=== PATIENT | male | born 1980 | race Caucasian/White ===

== ENCOUNTER 2019-04-10 09:58 | Inpatient (IN) | payer OTHER ==
[2019-04-10 10:16] VITALS: BMI 33.3
--- NOTE | 2019-04-10 12:25 | HP ---
COWS - Scale Resting Pulse: 1= [place] 81-100 Sweatin= Chills/Flushing Restless Observation: 0= Sits Still Pupil Size: 0= Normal to Room Light Bone or Joint Aches: 4=Acute Joint/Muscle Pain Runny Nose/ Eye Tearin= Nasal Congestion GI Upset > 30mins: 0= None Tremor Observation: 0= None Yawning Observation: 0= None Anxiety or Irritability: 2=Irritable/Anxious Goose Flesh Skin: 0=Smooth Skin COWS Score: 9 CIWA Score - Admission Criteria OASAS Guidelines: Admission for Medically Managed Detox: Requires at least one of the followin. CIWA greater than 12 2. Seizures within the past 24 hours 3. Delirium tremens within the past 24 hours 4. Hallucinations within the past 24 hours 5. Acute intervention needed for co occurring medical disorder 6. Acute intervention needed for co occurring psychiatric disorder 7. Severe withdrawal that cannot be handled at a lower level of care (continued vomiting, continued diarrhea, abnormal vital signs) requiring intravenous medication and/or fluids 8. Admission ROS [facility] Allergies/Adverse Reactions: Allergies Allergy/AdvReac Type Severity Reaction Status Date / Time Fish Containing Products Allergy Intermediate Swelling Verified 04/10/19 10:22 History of Present Illness: pt here requesting detox from opiate use , reports 2.5 bundles /day via inhalation , first age of use 14 , latest use yesterday afternoon 8 bags heroin via inhalation , current symptoms as above . Oxycodone : from friends , 10 /day , latest use yesterday . Longest sobriety since age 14 : zero , reports he got scared when his friend of an overdose 4 days ago : "It's that Fentanyl it's killing everybody " , denies prior participation in outpt program , denies prior OD , tobacco ; 2 ppd cocaine : 4 bags recently started , denies IVDU cannabis : use : 2 blunts/day methadone : was in [facility] in [place] ( ? [facility] ) , MDD 220 mg states was there in December 2018 x almost 1 year reports was hospitalized in [facility] x 2 weeks ago for abd issue " bad food that I ate ' , thinks they may have given him methadone there etoh - denies PMHX : denies PSHX ; denies PSYch : denies , denies current SI / Hi meds : denies SHx : homeless , unemployed , finances habit through shoplifting , denies current or past legal issues . Exam Limitations: Clinical Condition - Ebola screening Have you traveled outside of the country in the last 21 days: No (N) Have you had contact with anyone from an Ebola affected area: No Do you have a fever: No - Review of Systems Constitutional: See HPI EENT: reports: See HPI, Nose Congestion Respiratory: reports: No Symptoms reported Cardiac: reports: No Symptoms Reported GI: reports: See HPI : reports: No Symptoms Reported Musculoskeletal: reports: No Symptoms Reported Integumentary: reports: No Symptoms Reported Neuro: reports: No Symptoms reported Endocrine: reports: No Symptoms Reported, Other (pt denies h/o DM) Psychiatric: reports: Orientated x3, Anxious Patient History - Smoking Cessation Smoking history: Current every day smoker Have you smoked in the past 12 months: Yes Hx Chewing Tobacco Use: No Initiated information on smoking cessation: No - Substances abused Cocaine Substance route: Inhalation Frequency: Daily Amount used: 2BUNDLES Age of first use: 14 Date of last use: 04/09/19 Heroin Substance route: Inhalation Frequency: Daily Amount used: 2- BUNDLES Age of first use: 14 Date of last use: 04/09/19 Other Other (specify): PERCOCET Substance route: Oral Frequency: Daily Amount used: 4TABS Age of first use: 36 Date of last use: 04/09/19 Family Disease History - Family Disease History Family Disease History: CA: Mother (46 d. throat [place] ), Other: Father (d.46 AIDS ), Sister (9 siblings, does not keep in touch ) Other Family History: no children Admission Physical Exam S - Vital Signs Vital Signs: Vital Signs - 24 hr 04/10/19 10:07 Temperature 98.3 F Pulse Rate 83 Respiratory 18 Rate Blood Pressure 111/66 - Physical General Appearance: Yes: Moderate Distress, Anxious HEENTM: Yes: EOMI, Hearing grossly Normal, Normocephalic, Normal Voice, Other ( poor dentition , many missing teeth) Respiratory: Yes: Chest Non-Tender, Lungs Clear, Normal Breath Sounds Neck: Yes: No masses,lesions,Nodules, Trachea in good position Cardiology: Yes: Regular Rhythm, Regular Rate, S1, S2 Abdominal: Yes: Non Tender, Soft, Protuberent Back: Yes: Normal Inspection Musculoskeletal: Yes: Gait Steady, Joint Stiffness (left knee reprots remote cyling injury w/ intermittent stiffness and swelling), Joint swelling ( left knee) Extremities: Yes: Normal Range of Motion, Non-Tender Neurological: Yes: Fully Oriented, Alert, Motor Strength 5/5 Integumentary: Yes: Warm - Diagnostic (1) Opioid dependence Current Visit: Yes Status: Acute Qualifiers: Substance use status: in withdrawal Qualified Code(s): F11.23 - Opioid dependence with withdrawal (2) Cocaine abuse Current Visit: Yes Status: Acute (3) Cannabis dependence Current Visit: Yes Status: Chronic (4) Nicotine dependence Current Visit: Yes Status: Chronic Qualifiers: Nicotine product type: cigarettes Breathalyzer - Breathalyzer Breathalyzer: 0 Urine Drug Screen - Test Device Lot number: [id number] Expiration date: 12/26/20 - Control Is test valid?: Yes - Results Drug screen NEGATIVE: No Urine drug screen results: THC-Marijuana, WOLFGANG-Cocaine, MOP-Opiates, OXY- Oxycodone, MTD-Methadone Inpatient Rehab Admission - Rehab Decision to Admit Inpatient rehab admission?: No
[2019-04-10] MEDS ORDERED: cloNIDine HCL 0.1 MG TABLET PO PRN (12:31)
[2019-04-10] MEDS ORDERED: MELATONIN 5 MG TABLETS PO PRN (12:31)
[2019-04-10] MEDS ORDERED: MAGNESIUM CITRATE 300 ML BOTTLE PO PRN (12:31)
[2019-04-10] MEDS ORDERED: BISMUTH SUBSALICYLATE 262 MG/15 ML BTL PO PRN (12:31)
[2019-04-10] MEDS ORDERED: MENTHOL/PHENOL 1 EACH UD MM PRN (12:31)
[2019-04-10] MEDS ORDERED: MAG HYDROX/AL HYDROX/SIMETH 30 ML UNIT-DOSE CUP PO PRN (12:31)
[2019-04-10] MEDS ORDERED: MAGNESIUM HYDROX 2400MG/30ML ORAL SUSPENSION 30 ML CUP PO PRN (12:31)
[2019-04-10] MEDS ORDERED: ACETAMINOPHEN 325 MG TABLET (FP) PO PRN (12:31)
[2019-04-10] MEDS: METHOCARBAMOL 500 MG TABLET PO PRN ×2 (15:01→22:23)
[2019-04-10] MEDS: hydrOXYzine PAMOATE 25 MG CAPSULE (FP) PO PRN (15:01)
[2019-04-10 15:15] LABS: HEMATOCRIT 40.8 % (35.4-49); HEMOGLOBIN 13.3 GM/dL (11.7-16.9); MCH 27.3 pg (25.7-33.7); MCHC 32.6 g/dl (32.0-35.9); MEAN CELL VOLUME 83.6 fl (80-96); MEAN PLT VOLUME 9.1 fl (7.5-11.1); PLATELET COUNT 455 K/MM3 (134-434); RBC 4.88 M/mm3 (4.00-5.60); RDW 14.2 % (11.9-15.9); WHITE BLOOD COUNT 7.1 K/mm3 (4.0-10.0)
[2019-04-10 15:17] LABS: ALBUMIN 3.2 g/dl (3.4-5.0); BILIRUBIN,TOTAL 0.2 mg/dL (0.2-1); CALCIUM 9.5 mg/dL (8.5-10.1); CREATININE 0.8 mg/dL (0.55-1.3); POTASSIUM 4.9 mmol/L (3.5-5.1); TOT PROT 7.7 g/dl (6.4-8.2)
[2019-04-10] MEDS ORDERED: INSULIN SLIDING SCALE (NOVOLOG) 1 VIAL SQ SCH (16:30)
[2019-04-10] MEDS: INSULIN SLIDING SCALE (NOVOLOG) 1 VIAL SQ SCH (18:11)
[2019-04-10] MEDS: THIAMINE HCL 100 MG TABLET (FP) PO SCH (22:22)
[2019-04-10] MEDS ORDERED: METHADONE HCL 10 MG TABLET (FOR DETOX USE ONLY) PO ONE (23:00)
[2019-04-11] MEDS: ACETAMINOPHEN 325 MG TABLET (FP) PO PRN ×2 (01:53→23:10)
[2019-04-11] MEDS: hydrOXYzine PAMOATE 25 MG CAPSULE (FP) PO PRN ×3 (01:53→21:35)
[2019-04-11] MEDS: INSULIN SLIDING SCALE (NOVOLOG) 1 VIAL SQ SCH ×2 (07:44→17:08)
[2019-04-11] MEDS ORDERED: METHADONE HCL 10 MG TABLET (FOR DETOX USE ONLY) PO ONE (10:00)
[2019-04-11] MEDS: PRENATAL VITAMINS W/ FOLIC ACID TABLET (FP) PO SCH (10:25)
[2019-04-11] MEDS: METHOCARBAMOL 500 MG TABLET PO PRN ×2 (10:26→21:35)
--- NOTE | 2019-04-11 17:44 | PN ---
BHS COWS - Scale Resting Pulse: 2= [place] 101-120 Sweatin= Chills/Flushing Restless Observation: 1= Difficult to Sit Still Pupil Size: 0= Normal to Room Light Bone or Joint Aches: 2= Severe Diffuse Aches Runny Nose/ Eye Tearin= None GI Upset > 30mins: 0= None Tremor Observation of Outstretched Hands: 0= None Yawning Observation: 1= 1-2x During Session Anxiety or Irritability: 4=Extreme Anxiety Goose Flesh Skin: 3=Piloerection COWS Score: 14 BHS Progress Note (SOAP) Subjective: Anxious, Agitated, Sweating, Body Aches. Objective: PATIENT A & O X 3, OBSERVED AMBULATING ON UNIT UNASSISTED. IN NO ACUTE DISTRESS. 04/11/19 17:39 Vital Signs Temperature 97.8 F 04/11/19 13:08 Pulse Rate 93 H 04/11/19 13:08 Respiratory Rate 20 04/11/19 13:08 Blood Pressure 126/77 04/11/19 13:08 O2 Sat by Pulse Oximetry (%) Laboratory Tests 04/10/19 04/10/19 04/10/19 12:45 12:45 12:45 WBC 7.1 RBC 4.88 Hgb 13.3 Hct 40.8 MCV 83.6 MCH 27.3 MCHC 32.6 RDW 14.2 Plt Count 455 H MPV 9.1 Sodium 133 L Potassium 4.9 Chloride 94 L Carbon Dioxide 33 H Anion Gap 6 L BUN 11 Creatinine 0.8 Est GFR (CKD-EPI)AfAm 132.27 Est GFR (CKD-EPI)NonAf 114.12 POC Glucometer Random Glucose 387 H* Calcium 9.5 Total Bilirubin 0.2 AST 23 ALT 39 Alkaline Phosphatase 90 Total Protein 7.7 Albumin 3.2 L RPR Titer Nonreactive 04/10/19 04/11/19 04/11/19 16:47 07:40 16:23 WBC RBC Hgb Hct MCV MCH MCHC RDW Plt Count MPV Sodium Potassium Chloride Carbon Dioxide Anion Gap BUN Creatinine Est GFR (CKD-EPI)AfAm Est GFR (CKD-EPI)NonAf POC Glucometer 324 296 475 Random Glucose Calcium Total Bilirubin AST ALT Alkaline Phosphatase Total Protein Albumin RPR Titer LABS NOTED. Assessment: 04/11/19 17:40 WITHDRAWAL SYMPTOMS. HYPERGLYCEMIA. Plan: CONTINUE DETOX. INCREASE DAILY PO FLUID / WATER INTAKE. PATIENT OBSERVED GETTING INVOLVED IN VERBAL ALTERCATION WITH OTHER PATIENT DURING AM. PATIENT APPROACHED BY MEMBERS OF INTERDISCIPLINARY TEAM (HEALTH ADVOCATE, RN, CASE MANAGEMENT STAFF AND ASPNET DEVELOPER) AND ADVISED TO MAINTAIN DISTANCE MUCH POSSIBLE FROM OTHER PATIENT FOR REMAINDER OF TIME ON DETOX UNIT AND TO IMMEDIATELY INFORM MEDICAL / CASE MANAGEMENT STAFF SHOULD HE FEEL THREATENED OR AT-ODDS WITH ANY OTHER PATIENT AT ANY TIME. PATIENT VERBALIZED UNDERSTANDING OF RECOMMENDATION.
[2019-04-11] MEDS: THIAMINE HCL 100 MG TABLET (FP) PO SCH (21:35)
[2019-04-12] MEDS: INSULIN SLIDING SCALE (NOVOLOG) 1 VIAL SQ SCH ×2 (07:46→17:04)
[2019-04-12] MEDS ORDERED: METHADONE HCL 10 MG TABLET (FOR DETOX USE ONLY) PO ONE (10:00)
[2019-04-12] MEDS: PRENATAL VITAMINS W/ FOLIC ACID TABLET (FP) PO SCH (10:11)
--- NOTE | 2019-04-12 12:47 | PN ---
BHS COWS - Scale Resting Pulse: 0= [place] 80 or Below Sweatin= Chills/Flushing Restless Observation: 3= Extraneous Movement Pupil Size: 0= Normal to Room Light Bone or Joint Aches: 4=Acute Joint/Muscle Pain Runny Nose/ Eye Tearin= None GI Upset > 30mins: 0= None Tremor Observation of Outstretched Hands: 1= Tremor [place], Not Seen Yawning Observation: 1= 1-2x During Session Anxiety or Irritability: 1=Feels Anxious/Irritable Goose Flesh Skin: 0=Smooth Skin COWS Score: 11 BHS Progress Note (SOAP) Subjective: PT C/O ANXIETY, IRRITABILITY, HOT/COLD CHILLS. REQUESTING "I NEED MY METHADONE NOW". PT EXPRESSED DESIRE TO BE CLEAN BUT DOES NOT WANT METHADONE MAINTENANCE BECAUSE "DID NOT LIKE IT" PREVIOUSLY. REPORTS WAS ON METHADONE 200+ MG IN THE PAST. D/W PT OTHER AVAILABLE OPTIONS VIZ- A -VIZ SUBOXONE, NALTREXONE AND VIVITROL. ENCOURAGED TO MEET WITH COUNSELOR FOR AFTERCARE PLANS. Vital Signs 04/12/19 04/12/19 06:07 09:36 Temperature 98.2 F 97 F L Pulse Rate 61 72 Respiratory 18 18 Rate Blood Pressure 112/72 127/81 Laboratory Tests 04/10/19 04/10/19 04/10/19 12:45 12:45 12:45 WBC 7.1 RBC 4.88 Hgb 13.3 Hct 40.8 MCV 83.6 MCH 27.3 MCHC 32.6 RDW 14.2 Plt Count 455 H MPV 9.1 Sodium 133 L Potassium 4.9 Chloride 94 L Carbon Dioxide 33 H Anion Gap 6 L BUN 11 Creatinine 0.8 Est GFR (CKD-EPI)AfAm 132.27 Est GFR (CKD-EPI)NonAf 114.12 POC Glucometer Random Glucose 387 H* Calcium 9.5 Total Bilirubin 0.2 AST 23 ALT 39 Alkaline Phosphatase 90 Total Protein 7.7 Albumin 3.2 L RPR Titer Nonreactive 04/10/19 04/11/19 04/11/19 16:47 07:40 16:23 WBC RBC Hgb Hct MCV MCH MCHC RDW Plt Count MPV Sodium Potassium Chloride Carbon Dioxide Anion Gap BUN Creatinine Est GFR (CKD-EPI)AfAm Est GFR (CKD-EPI)NonAf POC Glucometer 324 296 475 Random Glucose Calcium Total Bilirubin AST ALT Alkaline Phosphatase Total Protein Albumin RPR Titer Objective: 04/12/19 12:51 WITHDRAWAL SX Assessment: 04/12/19 12:51 WITHDRAWAL SX Plan: CONTINUE DETOX D/W PT TO FOLLOW UP WITH COUNSELOR FOR AFTERCARE PLANNING.
[2019-04-12] MEDS: METHOCARBAMOL 500 MG TABLET PO PRN ×2 (15:44→22:04)
[2019-04-12] MEDS: hydrOXYzine PAMOATE 25 MG CAPSULE (FP) PO PRN ×2 (15:44→22:04)
[2019-04-12] MEDS: ACETAMINOPHEN 325 MG TABLET (FP) PO PRN (15:44)
[2019-04-12] MEDS: THIAMINE HCL 100 MG TABLET (FP) PO SCH (22:04)
[2019-04-13] MEDS: INSULIN SLIDING SCALE (NOVOLOG) 1 VIAL SQ SCH ×2 (07:14→17:35)
[2019-04-13] MEDS: IBUPROFEN 400 MG TABLET (FP) PO PRN ×2 (07:56→17:36)
[2019-04-13] MEDS: METHOCARBAMOL 500 MG TABLET PO PRN ×3 (07:56→22:53)
[2019-04-13] MEDS ORDERED: METHADONE HCL 10 MG TABLET (FOR DETOX USE ONLY) PO ONE (10:00)
[2019-04-13] MEDS: PRENATAL VITAMINS W/ FOLIC ACID TABLET (FP) PO SCH (10:03)
[2019-04-13] MEDS: ACETAMINOPHEN 325 MG TABLET (FP) PO PRN (10:04)
[2019-04-13] MEDS: hydrOXYzine PAMOATE 25 MG CAPSULE (FP) PO PRN ×2 (10:04→22:53)
--- NOTE | 2019-04-13 13:45 | PN ---
BHS COWS - Scale Resting Pulse: 0= [place] 80 or Below Sweatin= Chills/Flushing Restless Observation: 0= Sits Still Pupil Size: 0= Normal to Room Light Bone or Joint Aches: 1= Mild Discomfort Runny Nose/ Eye Tearin= Nasal Congestion GI Upset > 30mins: 1= Stomach Cramp Tremor Observation of Outstretched Hands: 1= Tremor [place], Not Seen Yawning Observation: 1= 1-2x During Session Anxiety or Irritability: 1=Feels Anxious/Irritable Goose Flesh Skin: 0=Smooth Skin COWS Score: 7 S Progress Note (SOAP) Subjective: feeling tired tolerate food and fluid well discuss medication assisted maintenance treatment program pick pack worker narcan kit from pharmacy Objective: 04/13/19 13:48 Vital Signs Temperature 97.1 F L 04/13/19 13:34 Pulse Rate 72 04/13/19 13:34 Respiratory Rate 18 04/13/19 13:34 Blood Pressure 106/70 04/13/19 13:34 O2 Sat by Pulse Oximetry (%) Laboratory Last Values WBC 7.1 K/mm3 (4.0-10.0) 04/10/19 12:45 RBC 4.88 M/mm3 (4.00-5.60) 04/10/19 12:45 Hgb 13.3 GM/dL (11.7-16.9) 04/10/19 12:45 Hct 40.8 % (35.4-49) 04/10/19 12:45 MCV 83.6 fl (80-96) 04/10/19 12:45 MCH 27.3 pg (25.7-33.7) 04/10/19 12:45 MCHC 32.6 g/dl (32.0-35.9) 04/10/19 12:45 RDW 14.2 % (11.9-15.9) 04/10/19 12:45 Plt Count 455 K/MM3 (134-434) H 04/10/19 12:45 MPV 9.1 fl (7.5-11.1) 04/10/19 12:45 Sodium 133 mmol/L (136-145) L 04/10/19 12:45 Potassium 4.9 mmol/L (3.5-5.1) 04/10/19 12:45 Chloride 94 mmol/L (98-107) L 04/10/19 12:45 Carbon Dioxide 33 mmol/L (21-32) H 04/10/19 12:45 Anion Gap 6 MMOL/L (8-16) L 04/10/19 12:45 BUN 11 mg/dL (7-18) 04/10/19 12:45 Creatinine 0.8 mg/dL (0.55-1.3) 04/10/19 12:45 Est GFR (CKD-EPI)AfAm 132.27 04/10/19 12:45 Est GFR (CKD-EPI)NonAf 114.12 04/10/19 12:45 POC Glucometer 475 UNITS (80-120) 04/11/19 16:23 Random Glucose 387 mg/dL (74-106) H* 04/10/19 12:45 Calcium 9.5 mg/dL (8.5-10.1) 04/10/19 12:45 Total Bilirubin 0.2 mg/dL (0.2-1) 04/10/19 12:45 AST 23 U/L (15-37) 04/10/19 12:45 ALT 39 U/L (13-61) 04/10/19 12:45 Alkaline Phosphatase 90 U/L (45-117) 04/10/19 12:45 Total Protein 7.7 g/dl (6.4-8.2) 04/10/19 12:45 Albumin 3.2 g/dl (3.4-5.0) L 04/10/19 12:45 RPR Titer Nonreactive (NONREACTIVE) 04/10/19 12:45 lab noted Assessment: 04/13/19 13:48 mild opiate withdrawal sx Plan: continue detox
[2019-04-13] MEDS: THIAMINE HCL 100 MG TABLET (FP) PO SCH (22:53)
[2019-04-14] MEDS ORDERED: METHADONE HCL 5 MG TABLET (FOR DETOX USE ONLY) PO ONE (06:00)
[2019-04-14] MEDS: INSULIN SLIDING SCALE (NOVOLOG) 1 VIAL SQ SCH (07:34)
[2019-04-14 09:17] VITALS: BP 118/89; PULSE 81; TEMP 98.2
[2019-04-14] MEDS: PRENATAL VITAMINS W/ FOLIC ACID TABLET (FP) PO SCH (10:08)
[2019-04-14] MEDS: ACETAMINOPHEN 325 MG TABLET (FP) PO PRN (10:09)
--- NOTE | 2019-04-14 15:06 | DS ---
[facility] Detox Discharge Summary Admission Date: 04/10/19 Discharge Date: 04/14/19 - History Present History: Opioid Dependence Additional Comments: 38 years old male admitted on 04/10/19 for opiate withdrawal stabilization completed detox regimen [facility] - Physical Exam Results Vital Signs: Vital Signs Temperature 98.2 F 04/14/19 09:16 Pulse Rate 81 04/14/19 09:16 Respiratory Rate 18 04/14/19 09:16 Blood Pressure 118/89 04/14/19 09:16 O2 Sat by Pulse Oximetry (%) Pertinent Admission Physical Exam Findings: opiate withdrawal sx Laboratory Last Values WBC 7.1 K/mm3 (4.0-10.0) 04/10/19 12:45 RBC 4.88 M/mm3 (4.00-5.60) 04/10/19 12:45 Hgb 13.3 GM/dL (11.7-16.9) 04/10/19 12:45 Hct 40.8 % (35.4-49) 04/10/19 12:45 MCV 83.6 fl (80-96) 04/10/19 12:45 MCH 27.3 pg (25.7-33.7) 04/10/19 12:45 MCHC 32.6 g/dl (32.0-35.9) 04/10/19 12:45 RDW 14.2 % (11.9-15.9) 04/10/19 12:45 Plt Count 455 K/MM3 (134-434) H 04/10/19 12:45 MPV 9.1 fl (7.5-11.1) 04/10/19 12:45 Sodium 133 mmol/L (136-145) L 04/10/19 12:45 Potassium 4.9 mmol/L (3.5-5.1) 04/10/19 12:45 Chloride 94 mmol/L (98-107) L 04/10/19 12:45 Carbon Dioxide 33 mmol/L (21-32) H 04/10/19 12:45 Anion Gap 6 MMOL/L (8-16) L 04/10/19 12:45 BUN 11 mg/dL (7-18) 04/10/19 12:45 Creatinine 0.8 mg/dL (0.55-1.3) 04/10/19 12:45 Est GFR (CKD-EPI)AfAm 132.27 04/10/19 12:45 Est GFR (CKD-EPI)NonAf 114.12 04/10/19 12:45 POC Glucometer 475 UNITS (80-120) 04/11/19 16:23 Random Glucose 387 mg/dL (74-106) H* 04/10/19 12:45 Calcium 9.5 mg/dL (8.5-10.1) 04/10/19 12:45 Total Bilirubin 0.2 mg/dL (0.2-1) 04/10/19 12:45 AST 23 U/L (15-37) 04/10/19 12:45 ALT 39 U/L (13-61) 04/10/19 12:45 Alkaline Phosphatase 90 U/L (45-117) 04/10/19 12:45 Total Protein 7.7 g/dl (6.4-8.2) 04/10/19 12:45 Albumin 3.2 g/dl (3.4-5.0) L 04/10/19 12:45 RPR Titer Nonreactive (NONREACTIVE) 04/10/19 12:45 lab noted - Treatment Hospital Course: Detox Protocol Followed, Detoxed Safely, Responded well, Discharged Condition Good, Rehab Referral Accepted Patient has Accepted a [facility] Referral to: [facility] - Medication Discharge Medications: Ambulatory Orders Naloxone HCl [Narcan] 4 mg NS ASDIR PRN #1 spray 04/13/19 - Diagnosis (1) Opioid dependence Status: Acute Qualifiers: Substance use status: uncomplicated Qualified Code(s): F11.20 - Opioid dependence, uncomplicated (2) Nicotine dependence Status: Acute Qualifiers: Nicotine product type: cigarettes Substance use status: in withdrawal Qualified Code(s): F17.213 - Nicotine dependence, cigarettes, with withdrawal - AMA Did Patient Leave Against Medical Advice: No
== END 2019-04-14 14:35 | disposition other institution (70) | DRG 773 ==
LOC: YASAS 09:58 → Y3N 12:57
PROVIDERS: ADMIT Surgery; ATTEND Surgery
PROC: HZ2ZZZZ Detoxification Services for Substance Abuse Treatment (ICD-10-PCS; principal; 2019-04-10)
DX: F11.23 Opioid dependence with withdrawal (principal); F14.20 Cocaine dependence, uncomplicated; F12.20 Cannabis dependence, uncomplicated; F17.213 Nicotine dependence, cigarettes, with withdrawal; R73.9 Hyperglycemia, unspecified
CPT/HCPCS: 36415; 80053; 82962; 85027; 86593; J0735

== ENCOUNTER 2019-04-14 14:40 | Inpatient (IN) | payer OTHER ==
--- NOTE | 2019-04-14 15:08 | HP ---
[facility] Rehab Assess/Revision - Admission History Admitted to Rehab from: [facility] Date of Admission to Rehab: 04/14/19 - Findings Detox History & Physical reviewed: Yes Concur with findings: Yes Comments/Additional Findings: transferred from detox to rehab admission as per protocol Inpatient Rehab Admission - Rehab Decision to Admit Inpatient rehab admission?: Yes - Initial Determination Are CD services needed?: Yes Free of communicable disease: Yes Not in need of hospitalization: Yes - Rehab Admission Criteria Previous failed treatment: Yes Poor recovery environment: Yes Comorbidities: Yes Lacks judgement: No Patient is meeting Inpatient Rehab admission criteria:: Yes
[2019-04-14] MEDS ORDERED: MENTHOL/PHENOL 1 EACH UD MM PRN (15:09)
[2019-04-14] MEDS ORDERED: LOPERAMIDE HCL 2 MG CAPSULE PO PRN (15:09)
[2019-04-14] MEDS ORDERED: P-EPHED 60MG/TRIPROLIDI 2.5MG TABLET PO PRN (15:09)
[2019-04-14] MEDS ORDERED: NICOTINE POLACRILEX 2 MG GUM BUC PRN (15:09)
[2019-04-14] MEDS ORDERED: MAG HYDROX/AL HYDROX/SIMETH 30 ML UNIT-DOSE CUP PO PRN (15:09)
[2019-04-14] MEDS ORDERED: MAGNESIUM HYDROX 2400MG/30ML ORAL SUSPENSION 30 ML CUP PO PRN (15:09)
[2019-04-14] MEDS ORDERED: NICOTINE 14 MG/24 HOURS TOPICAL PATCH TD PRN (15:09)
[2019-04-14] MEDS ORDERED: guaiFENesin 200 MG/10 ML 10 ML UNIT-DOSE CUPS PO PRN (15:09)
[2019-04-14] MEDS ORDERED: MAGNESIUM CITRATE 300 ML BOTTLE PO PRN (15:09)
[2019-04-14] MEDS: hydrOXYzine PAMOATE 25 MG CAPSULE (FP) PO PRN ×2 (17:20→21:31)
[2019-04-14] MEDS: IBUPROFEN 400 MG TABLET (FP) PO PRN (17:20)
[2019-04-14] MEDS: METHOCARBAMOL 500 MG TABLET PO PRN (17:20)
[2019-04-14] MEDS: MELATONIN 5 MG TABLETS PO PRN (21:31)
[2019-04-14] MEDS: THIAMINE HCL 100 MG TABLET (FP) PO SCH (21:31)
[2019-04-15] MEDS: IBUPROFEN 400 MG TABLET (FP) PO PRN (08:39)
[2019-04-15] MEDS: METHOCARBAMOL 500 MG TABLET PO PRN ×2 (08:39→21:33)
[2019-04-15] MEDS: hydrOXYzine PAMOATE 25 MG CAPSULE (FP) PO PRN ×2 (08:39→21:34)
[2019-04-15] MEDS: PRENATAL VITAMINS W/ FOLIC ACID TABLET (FP) PO SCH (10:19)
[2019-04-15] MEDS: ACETAMINOPHEN 325 MG TABLET (FP) PO PRN (19:24)
[2019-04-15] MEDS: THIAMINE HCL 100 MG TABLET (FP) PO SCH (21:33)
[2019-04-15] MEDS: MELATONIN 5 MG TABLETS PO PRN (21:34)
[2019-04-16] MEDS: PRENATAL VITAMINS W/ FOLIC ACID TABLET (FP) PO SCH (10:22)
[2019-04-16] MEDS: hydrOXYzine PAMOATE 25 MG CAPSULE (FP) PO PRN ×2 (10:22→21:37)
[2019-04-16] MEDS: METHOCARBAMOL 500 MG TABLET PO PRN ×2 (10:22→23:08)
[2019-04-16] MEDS: ACETAMINOPHEN 325 MG TABLET (FP) PO PRN ×2 (10:23→15:37)
--- NOTE | 2019-04-16 10:59 | PN ---
BHS Progress Note Note: patient need no concentrated diet
[2019-04-16] MEDS: IBUPROFEN 400 MG TABLET (FP) PO PRN (20:24)
[2019-04-16] MEDS: MELATONIN 5 MG TABLETS PO PRN (21:35)
[2019-04-16] MEDS: THIAMINE HCL 100 MG TABLET (FP) PO SCH (21:35)
[2019-04-17] MEDS: IBUPROFEN 400 MG TABLET (FP) PO PRN (06:34)
[2019-04-17] MEDS: METHOCARBAMOL 500 MG TABLET PO PRN (06:35)
[2019-04-17] MEDS: hydrOXYzine PAMOATE 25 MG CAPSULE (FP) PO PRN (06:35)
[2019-04-17 07:06] VITALS: BP 139/82; PULSE 80; TEMP 98
[2019-04-17] MEDS: PRENATAL VITAMINS W/ FOLIC ACID TABLET (FP) PO SCH (09:41)
[2019-04-17] MEDS: ACETAMINOPHEN 325 MG TABLET (FP) PO PRN (09:41)
--- NOTE | 2019-04-17 13:00 | PN ---
[facility] Progress Note Note: PT DECLINED TO CONTINUE WITH REHAB STATING [facility] OF "MY SISTER IS HAVING A BABY IN THE HOSPITAL AND I HAVE TO GO HELP HER. SHE'S ALONE AND HER F-- AMEENA IS AT WORK". PT WAS DIRECTED TO SEE A COUNSELOR BEFORE EXITING TO DISCUSS AFTERCARE PLANS. PT REPORTS HE HAS A PRIMARY CARE PROVIDER ON [address] [place] [address]. PT REPORTS HE STILL HAS 2 NARCAN KITS WITH HIM. Home Medications Medication Instructions Recorded Naloxone HCl [Narcan] 4 mg NS ASDIR PRN #1 spray 04/13/19 Vital Signs - 24 hr 04/17/19 04/17/19 04/17/19 00:30 03:30 07:04 Temperature 98.0 F Pulse Rate 80 Respiratory 18 18 18 Rate Blood Pressure 139/82 NAD PLAN:PT SIGNED OUT AMA FOLLOW UP WITH CD AFTERCARE RECOMMENDED FOLLOW UP WITH MEDICAL MANAGEMENT WITHIN 1-2 WEEKS AFTER DISCHARGE.
== END 2019-04-17 13:05 | disposition left against medical advice (07) | DRG 770 ==
LOC: YASAS 14:40 → Y5N 14:42
PROVIDERS: ADMIT Neuromusculoskeletal Medicine & OMM; ATTEND Neuromusculoskeletal Medicine & OMM
PROC: HZ42ZZZ Group Counseling for Substance Abuse Treatment, Cognitive-Behavioral (ICD-10-PCS; principal; 2019-04-14)
DX: F11.20 Opioid dependence, uncomplicated (principal); F14.10 Cocaine abuse, uncomplicated; F12.20 Cannabis dependence, uncomplicated; F17.210 Nicotine dependence, cigarettes, uncomplicated; R73.9 Hyperglycemia, unspecified

== ENCOUNTER 2019-08-27 14:00 | Inpatient (IN) | payer OTHER ==
[2019-08-27 18:11] VITALS: BMI 34.0
--- NOTE | 2019-08-27 21:04 | HP ---
COWS - Scale Resting Pulse: 1= [place] 81-100 Sweatin=Flushed/Facial Moisture Restless Observation: 0= Sits Still Pupil Size: 0= Normal to Room Light Bone or Joint Aches: 4=Acute Joint/Muscle Pain Runny Nose/ Eye Tearin= Nasal Congestion GI Upset > 30mins: 3= Vomiting/Diarrhea ([id number] x 2, diarrhea x 2) Tremor Observation: 2= Slight Tremor Visible Yawning Observation: 1= 1-2x During Session Anxiety or Irritability: 2=Irritable/Anxious Goose Flesh Skin: 3=Piloerection COWS Score: 19 CIWA Score - Admission Criteria OASAS Guidelines: Admission for Medically Managed Detox: Requires at least one of the followin. CIWA greater than 12 2. Seizures within the past 24 hours 3. Delirium tremens within the past 24 hours 4. Hallucinations within the past 24 hours 5. Acute intervention needed for co occurring medical disorder 6. Acute intervention needed for co occurring psychiatric disorder 7. Severe withdrawal that cannot be handled at a lower level of care (continued vomiting, continued diarrhea, abnormal vital signs) requiring intravenous medication and/or fluids 8. Admitting History and Physical - Admission Chief Complaint: Heroin withdrawal symptoms History of Present Illness: 38 years old male with 24 years of heroin dependence is seeking admission to detox. Patient reports multiple detox admissions, last at [place] [id number] period of sobriety. He denies past medical history and suicidal ideation at this time History Source: Patient Limitations to Obtaining History: No Limitations - Smoking History Smoking history: Current every day smoker Have you smoked in the past 12 months: Yes Aproximately how many cigarettes per day: 60 - Alcohol/Substance Use Hx Alcohol Use: No - Social History Usual Living Arrangement: Yes: Other (homeless) Do you think of yourself as: Straight/Heterosexual History of Recent Travel: No Admission [facility] Chief Complaint: Heroin withdrawal symptoms Allergies/Adverse Reactions: Allergies Allergy/AdvReac Type Severity Reaction Status Date / Time Fish Containing Products Allergy Intermediate Swelling Verified 08/27/19 18:05 History of Present Illness: 38 years old male with 24 years of heroin dependence is seeking admission to detox. Patient reports multiple detox admissions, last at [place] [id number] period of sobriety. He denies past medical history and suicidal ideation at this time Exam Limitations: No Limitations - Ebola screening Have you traveled outside of the country in the last 21 days: No (N) Have you had contact with anyone from an Ebola affected area: No Do you have a fever: No - Review of Systems Constitutional: Chills, Loss of Appetite, Malaise, Night Sweats, Changes in sleep EENT: reports: Sinus Pressure Respiratory: reports: No Symptoms reported Cardiac: reports: No Symptoms Reported GI: reports: Diarrhea, Poor Appetite, Poor Fluid Intake, Vomiting : reports: No Symptoms Reported Musculoskeletal: reports: Back Pain, Muscle Pain Integumentary: reports: Dryness, Flushing Neuro: reports: Tremors Endocrine: reports: No Symptoms Reported Hematology: reports: No Symptoms Reported Psychiatric: reports: Mood/Affect Appropiate, Orientated x3, Anxious Other Systems: Reviewed and Negative Patient History - Patient Medical History Hx Anemia: No Hx Asthma: No Hx Chronic Obstructive Pulmonary Disease (COPD): No Hx Cancer: No Hx Cardiac Disorders: No Hx Congestive Heart Failure: No Hx Hypertension: No Hx Hypercholesterolemia: No HX Cerebrovascular Accident: No Hx Seizures: No Hx Diabetes: No Hx Gastrointestinal Disorders: No Hx Liver Disease: No Hx Genitourinary Disorders: No Hx Sexually Transmitted Disorders: No Hx Renal Disease (ESRD): No Hx Thyroid Disease: No Hx Human Immunodeficiency Virus (HIV): No (Negative 2019) Hx Hepatitis C: No Hx Depression: No Hx Suicide Attempt: No Hx Schizophrenia: No - Patient Surgical History Past Surgical History: No - PPD History Previous Implant?: Yes Documented Results: Negative w/proof Implanted On Prior [facility] Admission?: Yes Date: 04/12/19 PPD to be Administered?: No - Reproductive History Patient is a Female of Child Bearing Age (11 -55 yrs old): No (male) - Smoking Cessation Smoking history: Current every day smoker Have you smoked in the past 12 months: Yes Aproximately how many cigarettes per day: 60 Hx Chewing Tobacco Use: No Initiated information on smoking cessation: Yes 'Breaking Loose' booklet given: 08/27/19 - Substance & Tx. History Hx Alcohol Use: No Hx Substance Use: Yes Substance Use Type: Cocaine, Heroin, Marijuana, Opiates Hx Substance Use Treatment: Yes ([facility]) - Substances abused Cocaine Substance route: Inhalation Frequency: Daily Amount used: a little Age of first use: 14 Date of last use: 08/26/19 Heroin Substance route: Inhalation Frequency: Daily Amount used: 6 bags Age of first use: 14 Date of last use: 08/27/19 Other Other (specify): PERCOCET Substance route: Oral Frequency: Daily Amount used: 4TABS Age of first use: 36 Date of last use: 04/09/19 Admission Physical Exam [facility] - Vital Signs Vital Signs: Vital Signs - 24 hr 08/27/19 18:04 Temperature 98.4 F Pulse Rate 81 Respiratory 20 Rate Blood Pressure 130/81 - Physical General Appearance: Yes: Moderate Distress, Tremorous, Irritable, Sweating, Anxious HEENTM: Yes: Within Normal Limits Respiratory: Yes: Lungs Clear, Normal Breath Sounds, No Respiratory Distress Neck: Yes: Supple Breast: Yes: Breast Exam Deferred Cardiology: Yes: Regular Rhythm, Regular Rate Abdominal: Yes: Normal Bowel Sounds Genitourinary: Yes: Within Normal Limits Back: Yes: Normal Inspection Musculoskeletal: Yes: Back pain, Muscle Pain, Muscle weakness Extremities: Yes: Tremors Neurological: Yes: Within Normal Limits Integumentary: Yes: Warm Lymphatic: Yes: Within Normal Limits - Diagnostic (1) Opioid dependence Current Visit: Yes Status: Chronic Qualifiers: Substance use status: in withdrawal Qualified Code(s): F11.23 - Opioid dependence with withdrawal Cleared for Admission [facility] - Detox or Rehab [facility] Level of Care: Medically Managed Detox Regimen/Protocol: Methadone Claeared for Rehab Admission: No Breathalyzer - Breathalyzer Breathalyzer: 0 Urine Drug Screen - Test Device Lot number: [id number] Expiration date: 04/25/21 - Control Is test valid?: Yes - Results Drug screen NEGATIVE: No Urine drug screen results: THC-Marijuana, WOLFGANG-Cocaine, MOP-Opiates, MTD- Methadone, BZO-Benzodiazepines Inpatient Rehab Admission - Rehab Decision to Admit Inpatient rehab admission?: No
[2019-08-27] MEDS ORDERED: ACETAMINOPHEN 325 MG TABLET (FP) PO PRN ×2 (21:18)
[2019-08-27] MEDS ORDERED: MAGNESIUM HYDROX 2400MG/30ML ORAL SUSPENSION 30 ML CUP PO PRN (21:18)
[2019-08-27] MEDS ORDERED: METHOCARBAMOL 500 MG TABLET PO PRN (21:18)
[2019-08-27] MEDS ORDERED: BISMUTH SUBSALICYLATE 524 MG/30 ML UD PO PRN (21:18)
[2019-08-27] MEDS ORDERED: MAG HYDROX/AL HYDROX/SIMETH 30 ML UNIT-DOSE CUP PO PRN (21:18)
[2019-08-27] MEDS ORDERED: MENTHOL/PHENOL 1 EACH UD MM PRN (21:18)
[2019-08-27] MEDS ORDERED: MAGNESIUM CITRATE 300 ML BOTTLE PO PRN (21:18)
[2019-08-27] MEDS ORDERED: NICOTINE POLACRILEX 2 MG GUM BUC PRN (21:18)
[2019-08-27] MEDS ORDERED: IBUPROFEN 400 MG TABLET (FP) PO PRN (21:18)
[2019-08-27] MEDS ORDERED: cloNIDine HCL 0.1 MG TABLET PO PRN (21:18)
[2019-08-27] MEDS ORDERED: METHADONE HCL 10 MG TABLET (FOR DETOX USE ONLY) PO ONE (21:18)
[2019-08-27] MEDS: THIAMINE HCL 100 MG TABLET (FP) PO SCH (22:43)
[2019-08-27] MEDS: MELATONIN 5 MG TABLETS PO PRN (22:43)
[2019-08-28] MEDS ORDERED: METHADONE HCL 10 MG TABLET (FOR DETOX USE ONLY) ONE (08:54)
[2019-08-28] MEDS ORDERED: METHADONE HCL 5 MG TABLET (FOR DETOX USE ONLY) ONE (08:54)
[2019-08-28] MEDS ORDERED: METHADONE (DETOX) 20 MG, METHADONE (DETOX) 5 MG PO ONE (10:00)
[2019-08-28] MEDS: PRENATAL VITAMINS W/ FOLIC ACID TABLET (FP) PO SCH (10:08)
[2019-08-28] MEDS: NICOTINE 21 MG/24 HOURS TOPICAL PATCH TD SCH (10:08)
[2019-08-28 10:53] LABS: HEMATOCRIT 42.6 % (35.4-49); HEMOGLOBIN 14.3 GM/dL (11.7-16.9); MCH 27.4 pg (25.7-33.7); MCHC 33.6 g/dl (32.0-35.9); MEAN CELL VOLUME 81.4 fl (80-96); MEAN PLT VOLUME 9.8 fl (7.5-11.1); PLATELET COUNT 201 K/MM3 (134-434); RBC 5.23 M/mm3 (4.00-5.60); RDW 13.6 % (11.9-15.9); WHITE BLOOD COUNT 6.2 K/mm3 (4.0-10.0)
[2019-08-28 11:02] LABS: ALBUMIN 3.3 g/dl (3.4-5.0); BILIRUBIN,TOTAL 0.6 mg/dL (0.2-1); BLOOD UREA NITROGEN 17.8 mg/dL (7-18); CALCIUM 9.1 mg/dL (8.5-10.1); CREATININE 0.8 mg/dL (0.55-1.3); POTASSIUM 5.2 mmol/L (3.5-5.1); TOT PROT 6.4 g/dl (6.4-8.2)
--- NOTE | 2019-08-28 14:37 | EKG ---
Test Reason : Blood Pressure : / mmHG Vent. Rate : 062 BPM Atrial Rate : 062 BPM P-R Int : 160 ms QRS Dur : 090 ms QT Int : 396 ms P-R-T Axes : 046 060 040 degrees QTc Int : 401 ms NORMAL SINUS RHYTHM NORMAL ECG NO PREVIOUS ECGS AVAILABLE Confirmed by HUMERA LOPEZ MD ([id number]) on 08/28/2019 2:37:26 PM Referred By: Yara Leroy Confirmed By:HUMERA LOPEZ MD
--- NOTE | 2019-08-28 15:03 | PN ---
BHS COWS - Scale Resting Pulse: 0= [place] 80 or Below Sweatin= Chills/Flushing Restless Observation: 1= Difficult to Sit Still Pupil Size: 0= Normal to Room Light Bone or Joint Aches: 2= Severe Diffuse Aches Runny Nose/ Eye Tearin= None GI Upset > 30mins: 0= None Tremor Observation of Outstretched Hands: 0= None Yawning Observation: 1= 1-2x During Session Anxiety or Irritability: 2=Irritable/Anxious Goose Flesh Skin: 3=Piloerection COWS Score: 10 BHS Progress Note (SOAP) Subjective: Body Aches, Muscle Spasms (in bilateral legs), Sweating, Anxious. Objective: PATIENT A & O X 3, OBSERVED AMBULATING ON DETOX UNIT UNASSISTED. IN NO ACUTE DISTRESS. 08/28/19 15:00 Vital Signs Temperature 97.9 F 08/28/19 09:08 Pulse Rate 54 L 08/28/19 13:08 Respiratory Rate 18 08/28/19 13:08 Blood Pressure 120/81 08/28/19 13:08 O2 Sat by Pulse Oximetry (%) Laboratory Tests 08/28/19 08/28/19 08/28/19 08:00 08:00 08:00 WBC 6.2 RBC 5.23 Hgb 14.3 Hct 42.6 MCV 81.4 MCH 27.4 MCHC 33.6 RDW 13.6 Plt Count 201 D MPV 9.8 Sodium 135 L Potassium 5.2 H Chloride 96 L Carbon Dioxide 35 H Anion Gap 4 L BUN 17.8 Creatinine 0.8 Est GFR (CKD-EPI)AfAm 132.27 Est GFR (CKD-EPI)NonAf 114.12 Random Glucose 258 H Calcium 9.1 Total Bilirubin 0.6 AST 7 L ALT 15 Alkaline Phosphatase 101 Total Protein 6.4 Albumin 3.3 L RPR Titer Nonreactive LABS NOTED. Assessment: 08/28/19 15:03 WITHDRAWAL SYMPTOMS. HYPERGLYCEMIA (PATIENT DENIES KNOWN HISTORY OF DM ON DETOX ADMISSION H & P). HYPERKALEMIA. 08/28/19 15:04 Plan: CONTINUE DETOX. INCREASE DAILY PO WATER INTAKE. REPEAT K LEVEL TOMORROW AM FOR ELEVATED K LEVEL NOTED NO DETOX ADMISSION LABORATORY ASSESSMENT. FASTING GLUCOSE LEVEL ORDERED FOR TOMORROW AM FOR ELEVATED RANDOM GLUCOSE LEVEL NOTED ON DETOX ADMISSION LABORATORY ASSESSMENT.
[2019-08-28] MEDS: BACLOFEN 10 MG TABLET (FP) PO PRN (19:25)
[2019-08-28] MEDS: hydrOXYzine PAMOATE 25 MG CAPSULE (FP) PO PRN (19:25)
[2019-08-28] MEDS: THIAMINE HCL 100 MG TABLET (FP) PO SCH (22:04)
[2019-08-28] MEDS: MELATONIN 5 MG TABLETS PO PRN (22:04)
[2019-08-29] MEDS ORDERED: METHADONE HCL 10 MG TABLET (FOR DETOX USE ONLY) PO ONE (10:00)
[2019-08-29] MEDS: NICOTINE 21 MG/24 HOURS TOPICAL PATCH TD SCH (10:20)
[2019-08-29] MEDS: PRENATAL VITAMINS W/ FOLIC ACID TABLET (FP) PO SCH (10:20)
[2019-08-29] MEDS: hydrOXYzine PAMOATE 25 MG CAPSULE (FP) PO PRN (10:22)
[2019-08-29] MEDS: BACLOFEN 10 MG TABLET (FP) PO PRN (10:22)
[2019-08-29 13:16] VITALS: BP 117/74; PULSE 62; TEMP 98.5
--- NOTE | 2019-08-29 13:37 | PN ---
BHS COWS - Scale Resting Pulse: 0= [place] 80 or Below Sweatin= Chills/Flushing Restless Observation: 1= Difficult to Sit Still Pupil Size: 0= Normal to Room Light Bone or Joint Aches: 2= Severe Diffuse Aches Runny Nose/ Eye Tearin= None GI Upset > 30mins: 0= None Tremor Observation of Outstretched Hands: 0= None Yawning Observation: 1= 1-2x During Session Anxiety or Irritability: 2=Irritable/Anxious Goose Flesh Skin: 3=Piloerection COWS Score: 10 BHS Progress Note (SOAP) Subjective: Body Aches, Gooseflesh, Sweating. Objective: PATIENT A & O X 3, OBSERVED AMBULATING ON DETOX UNIT UNASSISTED. IN NO ACUTE DISTRESS. 08/29/19 13:35 Vital Signs Temperature 98.5 F 08/29/19 13:16 Pulse Rate 62 08/29/19 13:16 Respiratory Rate 18 08/29/19 13:16 Blood Pressure 117/74 08/29/19 13:16 O2 Sat by Pulse Oximetry (%) Laboratory Tests 08/28/19 08/28/19 08/28/19 08:00 08:00 08:00 WBC 6.2 RBC 5.23 Hgb 14.3 Hct 42.6 MCV 81.4 MCH 27.4 MCHC 33.6 RDW 13.6 Plt Count 201 D MPV 9.8 Sodium 135 L Potassium 5.2 H Chloride 96 L Carbon Dioxide 35 H Anion Gap 4 L BUN 17.8 Creatinine 0.8 Est GFR (CKD-EPI)AfAm 132.27 Est GFR (CKD-EPI)NonAf 114.12 Random Glucose 258 H Calcium 9.1 Total Bilirubin 0.6 AST 7 L ALT 15 Alkaline Phosphatase 101 Total Protein 6.4 Albumin 3.3 L RPR Titer Nonreactive LABS NOTED. PATIENT REFUSED TO HAVE REPEAT K LEVEL AND FASTING GLUCOSE LEVEL DRAWN TODAY; WILL CHECK TOMORROW. 08/29/19 13:37 Assessment: 08/29/19 13:37 WITHDRAWAL SYMPTOMS. HYPERGLYCEMIA. HYPERKALEMIA. 08/29/19 13:38 Plan: CONTINUE DETOX. INCREASE DAILY PO WATER INTAKE. PRN BACLOFEN PO FOR MUSCULAR SPASMS.
--- NOTE | 2019-08-29 16:13 | DS ---
[facility] Detox Discharge Summary Admission Date: 08/27/19 Discharge Date: 08/29/19 - History Present History: Cocaine Dependence, Opioid Dependence Additional Comments: PATIENT REPORTS THAT HE HAS A FAMILY EMERGENCY TO ATTEND TO AND THAT HE DOES NOT WISH TO REMAIN TO COMPLETE DETOX REGIMEN. RISKS OF LEAVING DETOX UNIT AGAINST MEDICAL ADVICE AND PRIOR TO COMPLETION OF DETOX REGIMEN EXPLAINED TO PATIENT. PATIENT ADVISED TO GO IMMEDIATELY TO NEAREST ER SHOULD ANY INTOLERABLE WITHDRAWAL / DETOX SYMPTOMS DEVELOP AT ANY TIME. PATIENT ADVISED TO FOLLOW-UP WITH FIELD SEISMOLOGIST AFTER DISCHARGE FROM DETOX FOR GENERAL MEDICAL ASSESSMENT AND FOR ELEVATED LIVER ENZYMES NOTED ON DETOX ADMISSION LABORATORY ASSESSMENT. PATIENT VERBALIZED UNDERSTANDING OF ALL INFORMATION / RECOMMENDATIONS PRESENTED TO HIM PRIOR TO DEPARTURE FROM DETOX UNIT. COPIES OF RESULTS OF ALL LABS DRAWN WHILE ADMITTED FOR DETOX GIVEN TO PATIENT AT TIME IN WHICH HE LEFT DETOX UNIT. PATIENT LEFT DETOX UNIT IN STABLE MEDICAL CONDITION. Pertinent Past History: Hyperkalemia, Hyperglycemia. - Physical Exam Results Vital Signs: Vital Signs Temperature 98.5 F 08/29/19 13:16 Pulse Rate 62 08/29/19 13:16 Respiratory Rate 18 08/29/19 13:16 Blood Pressure 117/74 08/29/19 13:16 O2 Sat by Pulse Oximetry (%) Pertinent Admission Physical Exam Findings: WITHDRAWAL SYMPTOMS. Laboratory Tests 08/28/19 08/28/19 08/28/19 08:00 08:00 08:00 WBC 6.2 RBC 5.23 Hgb 14.3 Hct 42.6 MCV 81.4 MCH 27.4 MCHC 33.6 RDW 13.6 Plt Count 201 D MPV 9.8 Sodium 135 L Potassium 5.2 H Chloride 96 L Carbon Dioxide 35 H Anion Gap 4 L BUN 17.8 Creatinine 0.8 Est GFR (CKD-EPI)AfAm 132.27 Est GFR (CKD-EPI)NonAf 114.12 Random Glucose 258 H Calcium 9.1 Total Bilirubin 0.6 AST 7 L ALT 15 Alkaline Phosphatase 101 Total Protein 6.4 Albumin 3.3 L RPR Titer Nonreactive LABS NOTED. - Medication Discharge Medications: Ambulatory Orders Naloxone HCl [Narcan] 4 mg NS ASDIR PRN #1 spray 04/13/19 - Diagnosis (1) Hyperkalemia Status: Acute (2) Hyperglycemia Status: Acute (3) Nicotine dependence Status: Chronic Qualifiers: Nicotine product type: cigarettes Substance use status: uncomplicated Qualified Code(s): F17.210 - Nicotine dependence, cigarettes, uncomplicated (4) Opioid dependence Status: Acute Qualifiers: Substance use status: in withdrawal Qualified Code(s): F11.23 - Opioid dependence with withdrawal - AMA Did Patient Leave Against Medical Advice: Yes (PT. HAD FAMILY EMERGENCY AND DI NOT WISH TO COMPLETE DETOX.)
[2019-08-30] MEDS ORDERED: METHADONE (DETOX) 10 MG, METHADONE (DETOX) 5 MG PO ONE (10:00)
[2019-08-31] MEDS ORDERED: METHADONE HCL 10 MG TABLET (FOR DETOX USE ONLY) PO ONE (10:00)
[2019-09-01] MEDS ORDERED: METHADONE HCL 5 MG TABLET (FOR DETOX USE ONLY) PO ONE (06:00)
== END 2019-08-29 15:46 | disposition left against medical advice (07) | DRG 770 ==
LOC: YASAS 14:00 → Y3W 20:11 → UNDOADMIN 20:11 → Y3N 22:26
PROVIDERS: ADMIT Surgery; ATTEND Surgery
PROC: HZ2ZZZZ Detoxification Services for Substance Abuse Treatment (ICD-10-PCS; principal; 2019-08-27)
DX: F11.23 Opioid dependence with withdrawal (principal); F14.20 Cocaine dependence, uncomplicated; F17.210 Nicotine dependence, cigarettes, uncomplicated; E87.5 Hyperkalemia; R73.9 Hyperglycemia, unspecified; Z91.013 Allergy to seafood; Z59.0 Homelessness
CPT/HCPCS: 36415; 80053; 85027; 86593; 93005; 93010; J0475

== ENCOUNTER 2019-11-28 09:34 | Inpatient (IN) | payer OTHER ==
[2019-11-28 10:02] VITALS: BMI 32.9
--- NOTE | 2019-11-28 10:26 | HP ---
COWS - Scale Resting Pulse: 0= [place] 80 or Below Sweatin= Chills/Flushing Restless Observation: 1= Difficult to Sit Still Pupil Size: 1= Pupils >than Normal Bone or Joint Aches: 2= Severe Diffuse Aches Runny Nose/ Eye Tearin= Runny Nose/Eyes GI Upset > 30mins: 2= Nausea/Diarrhea Tremor Observation: 2= Slight Tremor Visible Yawning Observation: 2= >3x During Session Anxiety or Irritability: 2=Irritable/Anxious Goose Flesh Skin: 0=Smooth Skin COWS Score: 15 CIWA Score - Admission Criteria OASAS Guidelines: Admission for Medically Managed Detox: Requires at least one of the followin. CIWA greater than 12 2. Seizures within the past 24 hours 3. Delirium tremens within the past 24 hours 4. Hallucinations within the past 24 hours 5. Acute intervention needed for co occurring medical disorder 6. Acute intervention needed for co occurring psychiatric disorder 7. Severe withdrawal that cannot be handled at a lower level of care (continued vomiting, continued diarrhea, abnormal vital signs) requiring intravenous medication and/or fluids 8. Admitting History and Physical - Admission Chief Complaint: i need help to stop using heroin,cocaine and marijuana History of Present Illness: this 39 years old male with heroin,cocaine and marijuana dependence,seeking detox,withdrawal symptom, last admission 08/27/19 to 08/29/19 not completed,family emergency History Source: Patient Limitations to Obtaining History: No Limitations - Past Medical History REGISTERED NURSE SURGICAL SERVICES: Yes: Seizure, Syncope - Smoking History Smoking history: Current every day smoker Have you smoked in the past 12 months: Yes Aproximately how many cigarettes per day: 40 - Alcohol/Substance Use Hx Alcohol Use: No History of Substance Use: reports: Cocaine, Heroin, Marijuana - Social History Usual Living Arrangement: Yes: Other ADL: Support Services Occupation: unemployed History of Recent Travel: No Admission ROS S - HPI Chief Complaint: i need help to stop using heroin,cocaine and marijuana Allergies/Adverse Reactions: Allergies Allergy/AdvReac Type Severity Reaction Status Date / Time Fish Containing Products Allergy Intermediate Swelling Verified 11/28/19 09:57 History of Present Illness: this 39 years old with heroin,cocaine and marijuana dependence,seeking detox, withdrawal symptom,, multiple admissions in the past last 08/27/19 to 08/29/19 not completed,family emergency nicotine dependence denied seizure no syncope longest sobriety 1 year plan for rehab after detox Exam Limitations: No Limitations - Ebola screening Have you traveled outside of the country in the last 21 days: No Have you had contact with anyone from an Ebola affected area: No - Review of Systems Constitutional: Chills, Loss of Appetite, Malaise, Night Sweats, Changes in sleep, Weakness EENT: reports: Tearing, Nose Congestion Respiratory: reports: No Symptoms reported Cardiac: reports: No Symptoms Reported GI: reports: Nausea, Poor Appetite, Abdominal cramping : reports: No Symptoms Reported Musculoskeletal: reports: Back Pain, Joint Pain, Neck Pain Integumentary: reports: Dryness Neuro: reports: Headache, Tremors Endocrine: reports: No Symptoms Reported Hematology: reports: No Symptoms Reported Psychiatric: reports: No Sypmtoms Reported, Judgement Intact, Mood/Affect Appropiate, Orientated x3 Other Systems: Reviewed and Negative Patient History - Patient Medical History Hx Anemia: No Hx Asthma: No Hx Chronic Obstructive Pulmonary Disease (COPD): No Hx Cancer: No Hx Cardiac Disorders: No Hx Congestive Heart Failure: No Hx Hypertension: No Hx Hypercholesterolemia: No Hx Pacemaker: No HX Cerebrovascular Accident: No Hx Seizures: No Hx Dementia: No Hx Diabetes: No Hx Gastrointestinal Disorders: No Hx Liver Disease: No Hx Genitourinary Disorders: No Hx Sexually Transmitted Disorders: No Hx Renal Disease (ESRD): No Hx Thyroid Disease: No Hx Human Immunodeficiency Virus (HIV): No (Negative 2019 09/13 negative) Hx Hepatitis C: No Hx Depression: No Hx Suicide Attempt: No Hx Bipolar Disorder: No Hx Schizophrenia: No Other Medical History: no suicidal,no homicidal - Patient Surgical History Past Surgical History: No - PPD History Previous Implant?: Yes Documented Results: Negative w/proof Implanted On Prior R Admission?: Yes Date: 04/12/19 PPD to be Administered?: No - Smoking Cessation Smoking history: Current every day smoker Have you smoked in the past 12 months: Yes Aproximately how many cigarettes per day: 40 Hx Chewing Tobacco Use: No Initiated information on smoking cessation: Yes 'Breaking Loose' booklet given: 11/28/19 - Substance & Tx. History Hx Alcohol Use: Yes Hx Substance Use: Yes Substance Use Type: Cocaine, Heroin, Marijuana Hx Substance Use Treatment: Yes ([facility] 08/27/19 to 10/04/19 not completed family emergency) - Substances abused Cocaine Substance route: Inhalation Frequency: 3-6 times per week Amount used: 3 $20 BAGS Age of first use: 14 Date of last use: 11/26/19 Heroin Substance route: Inhalation Frequency: Daily Amount used: 1 BUNDLE A DAY Age of first use: 14 Date of last use: 11/28/19 Other Other (specify): PERCOCET 10/325 Substance route: Oral Frequency: Daily Amount used: 4TABS Age of first use: 36 Date of last use: 04/09/19 Khat Substance route: Smoking Frequency: Daily Amount used: 5 BLUNTS A DAY Age of first use: 14 Date of last use: 11/28/19 Marijuana/Hashish Substance route: Smoking Frequency: Daily Amount used: 20$ Age of first use: 14 Date of last use: 11/27/19 Admission Physical Exam S - Vital Signs Vital Signs: Vital Signs - 24 hr 11/28/19 09:47 Temperature 98.6 F Pulse Rate 16 L Respiratory 71 H Rate Blood Pressure 120/74 - Physical General Appearance: Yes: Moderate Distress, Tremorous, Irritable, Sweating, Anxious HEENTM: Yes: Normal ENT Inspection, JENNIFFER, Pharynx Normal, Other (furunclulitis of occipital area) Respiratory: Yes: Within Normal Limits, Lungs Clear, Normal Breath Sounds Neck: Yes: Within Normal Limits, Supple, Trachea in good position Breast: Yes: Within Normal Limits Cardiology: Yes: Within Normal Limits, Regular Rhythm, Regular Rate, S1, S2 Abdominal: Yes: Within Normal Limits, Normal Bowel Sounds, Non Tender, Flat, Soft Genitourinary: Yes: Within Normal Limits Back: Yes: Muscle Spasm Musculoskeletal: Yes: Back pain, Muscle Pain Extremities: Yes: Tremors Neurological: Yes: building drafter II-XII NML intact, Fully Oriented, Alert, Motor Strength 5/5 Integumentary: Yes: Dry Lymphatic: Yes: Within Normal Limits - Diagnostic (1) Opioid dependence with withdrawal Current Visit: Yes Status: Acute (2) Cannabis dependence Current Visit: No Status: Chronic (3) Cocaine abuse Current Visit: No Status: Chronic (4) Nicotine dependence Current Visit: No Status: Chronic Qualifiers: Nicotine product type: cigarettes Substance use status: uncomplicated Qualified Code(s): F17.210 - Nicotine dependence, cigarettes, uncomplicated (5) Folliculitis Current Visit: Yes Status: Acute Cleared for Admission [facility] - Detox or Rehab [facility] Level of Care: Medically Managed Detox Regimen/Protocol: Methadone Breathalyzer - Breathalyzer Breathalyzer: 0 Urine Drug Screen - Test Device Lot number: [id number] Expiration date: 04/25/21 - Control Is test valid?: Yes - Results Drug screen NEGATIVE: No Urine drug screen results: THC-Marijuana, [place]OLFGANG-Cocaine, MOP-Opiates, MTD- Methadone, BZO-Benzodiazepines Inpatient Rehab Admission - Rehab Decision to Admit Inpatient rehab admission?: No
[2019-11-28] MEDS ORDERED: ACETAMINOPHEN 325 MG TABLET (FP) PO PRN ×2 (10:39)
[2019-11-28] MEDS ORDERED: MELATONIN 5 MG TABLETS PO PRN (10:39)
[2019-11-28] MEDS ORDERED: hydrOXYzine PAMOATE 25 MG CAPSULE (FP) PO PRN (10:39)
[2019-11-28] MEDS ORDERED: MAGNESIUM CITRATE 300 ML BOTTLE PO PRN (10:39)
[2019-11-28] MEDS ORDERED: MAGNESIUM HYDROX 2400MG/30ML ORAL SUSPENSION 30 ML CUP PO PRN (10:39)
[2019-11-28] MEDS ORDERED: MAG HYDROX/AL HYDROX/SIMETH 30 ML UNIT-DOSE CUP PO PRN (10:39)
[2019-11-28] MEDS ORDERED: NICOTINE POLACRILEX 2 MG GUM BUC PRN (10:39)
[2019-11-28] MEDS ORDERED: BISMUTH SUBSALICYLATE 262 MG/15 ML BTL PO PRN (10:39)
[2019-11-28] MEDS ORDERED: MENTHOL/PHENOL 1 EACH UD MM PRN (10:39)
[2019-11-28] MEDS ORDERED: METHADONE HCL 10 MG TABLET (FOR DETOX USE ONLY) PO ONE ×2 (10:39→15:30)
[2019-11-28] MEDS ORDERED: IBUPROFEN 400 MG TABLET (FP) PO PRN (10:39)
[2019-11-28] MEDS ORDERED: METHOCARBAMOL 500 MG TABLET PO PRN (10:39)
[2019-11-28] MEDS ORDERED: cloNIDine HCL 0.1 MG TABLET PO PRN (10:39)
[2019-11-28] MEDS ORDERED: diazePAM 5 MG TABLET PO PRN (10:42)
[2019-11-28] MEDS: SULFAMETHOXAZOLE/TRIMETHOPRIM 800MG/160MG D.S. TABLET PO SCH ×2 (15:32→21:52)
[2019-11-28] MEDS: NICOTINE 21 MG/24 HOURS TOPICAL PATCH TD SCH (15:33)
[2019-11-28] MEDS: BACITRACIN 15 GM TUBE TOPICAL OINTMENT TP SCH ×2 (15:34→21:56)
[2019-11-28] MEDS ORDERED: THIAMINE HCL 100 MG TABLET (FP) PO SCH (22:00)
[2019-11-29] MEDS ORDERED: METHADONE HCL 5 MG TABLET (FOR DETOX USE ONLY) ONE (09:32)
[2019-11-29] MEDS ORDERED: METHADONE HCL 10 MG TABLET (FOR DETOX USE ONLY) ONE (09:33)
[2019-11-29 09:55] LABS: HEMATOCRIT 41.8 % (35.4-49); HEMOGLOBIN 13.6 GM/dL (11.7-16.9); MCH 27.9 pg (25.7-33.7); MCHC 32.6 g/dl (32.0-35.9); MEAN CELL VOLUME 85.6 fl (80-96); MEAN PLT VOLUME 11.1 fl (7.5-11.1); PLATELET COUNT 211 K/MM3 (134-434); RBC 4.88 M/mm3 (4.00-5.60); RDW 14.7 % (11.9-15.9); WHITE BLOOD COUNT 9.1 K/mm3 (4.0-10.0)
[2019-11-29 09:57] VITALS: BP 122/77; PULSE 64; TEMP 98.2
[2019-11-29] MEDS ORDERED: METHADONE (DETOX) 20 MG, METHADONE (DETOX) 5 MG PO ONE (10:00)
[2019-11-29] MEDS ORDERED: PRENATAL VITAMINS W/ FOLIC ACID TABLET (FP) PO SCH (10:00)
[2019-11-29 10:12] LABS: ALBUMIN 3.5 g/dl (3.4-5.0); CALCIUM 8.6 mg/dL (8.5-10.1); POTASSIUM 4.8 mmol/L (3.5-5.1); TOT PROT 6.9 g/dl (6.4-8.2)
[2019-11-29] MEDS: NICOTINE 21 MG/24 HOURS TOPICAL PATCH TD SCH (10:30)
[2019-11-29] MEDS: SULFAMETHOXAZOLE/TRIMETHOPRIM 800MG/160MG D.S. TABLET PO SCH (10:30)
[2019-11-29] MEDS: BACITRACIN 15 GM TUBE TOPICAL OINTMENT TP SCH (10:30)
--- NOTE | 2019-11-29 10:41 | DS ---
[facility] Detox Discharge Summary Admission Date: 11/28/19 Discharge Date: 11/29/19 - History Present History: Cannabis Dependence, Opioid Dependence Pertinent Past History: Pt states he wants to leave today- d/w pt the risks of using heroin- / disability. 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 Vital Signs - 24 hr 11/28/19 11/28/19 11/28/19 13:17 17:23 21:45 Temperature 98.1 F 98.4 F 98.4 F Pulse Rate 72 62 65 Respiratory 20 18 18 Rate Blood Pressure 145/90 124/79 117/75 11/29/19 11/29/19 11/29/19 01:12 03:38 07:17 Temperature 97.9 F Pulse Rate 56 L Respiratory 18 18 18 Rate Blood Pressure 130/68 11/29/19 09:56 Temperature 98.2 F Pulse Rate 64 Respiratory 16 Rate Blood Pressure 122/77 Laboratory Tests 11/29/19 11/29/19 05:40 07:40 WBC 9.1 RBC 4.88 Hgb 13.6 Hct 41.8 MCV 85.6 MCH 27.9 MCHC 32.6 RDW 14.7 Plt Count 211 MPV 11.1 D Sodium 133 L Potassium 4.8 Chloride 96 L Carbon Dioxide 29 Anion Gap 8 BUN 16.0 Creatinine 1.0 Est GFR (CKD-EPI)AfAm 110.17 Est GFR (CKD-EPI)NonAf 95.05 Calcium 8.6 AST 12 L ALT 17 Alkaline Phosphatase 129 H Total Protein 6.9 Albumin 3.5 a/p: pt leaving AMA before discharge planning could be completed - Physical Exam Results Vital Signs: Vital Signs Temperature 98.2 F 11/29/19 09:56 Pulse Rate 64 11/29/19 09:56 Respiratory Rate 16 11/29/19 09:56 Blood Pressure 122/77 11/29/19 09:56 O2 Sat by Pulse Oximetry (%) - Medication Discharge Medications: Ambulatory Orders NK [No Known Home Medication] 11/28/19
[2019-11-29 10:45] LABS: BILIRUBIN,TOTAL 0.3 mg/dL (0.2-1)
[2019-11-30] MEDS ORDERED: METHADONE HCL 10 MG TABLET (FOR DETOX USE ONLY) PO ONE (10:00)
[2019-12-01] MEDS ORDERED: METHADONE (DETOX) 10 MG, METHADONE (DETOX) 5 MG PO ONE (10:00)
[2019-12-02] MEDS ORDERED: METHADONE HCL 10 MG TABLET (FOR DETOX USE ONLY) PO ONE (10:00)
[2019-12-03] MEDS ORDERED: METHADONE HCL 5 MG TABLET (FOR DETOX USE ONLY) PO ONE (06:00)
== END 2019-11-29 11:13 | disposition left against medical advice (07) | DRG 770 ==
LOC: YASAS 09:34 → Y6N 10:31
PROVIDERS: ADMIT Allergy & Immunology; ATTEND Allergy & Immunology
PROC: HZ2ZZZZ Detoxification Services for Substance Abuse Treatment (ICD-10-PCS; principal; 2019-11-28)
DX: F11.23 Opioid dependence with withdrawal (principal); F14.20 Cocaine dependence, uncomplicated; F12.20 Cannabis dependence, uncomplicated; F17.210 Nicotine dependence, cigarettes, uncomplicated; L73.9 Follicular disorder, unspecified; Z91.013 Allergy to seafood
CPT/HCPCS: 36415; 80053; 85027; 86593

== ENCOUNTER 2023-04-27 19:47 | Inpatient (IN) | payer OTHER ==
[2023-04-27 21:38] VITALS: BMI 34.4
[2023-04-27] MEDS ORDERED: DICYCLOMINE HCL 10 MG CAPSULE PO PRN (22:43)
[2023-04-27] MEDS ORDERED: NALOXONE HCL (KLOXXADO) 8 MG SPRAY NS PRN (22:43)
[2023-04-27] MEDS ORDERED: NICOTINE POLACRILEX 2 MG GUM BUC PRN (22:43)
[2023-04-27] MEDS ORDERED: BENZOCAINE/MENTHOL (CHLORASEPTIC ) LOZENGE MM PRN (22:43)
[2023-04-27] MEDS ORDERED: IBUPROFEN 400 MG TABLET (FP) PO PRN (22:43)
[2023-04-27] MEDS ORDERED: MAGNESIUM HYDROX 2400MG/30ML ORAL SUSPENSION 30 ML CUP PO PRN (22:43)
[2023-04-27] MEDS ORDERED: BENZONATATE 200 MG CAPSULE PO PRN (22:43)
[2023-04-27] MEDS ORDERED: P-EPHED 60MG/TRIPROLIDI 2.5MG TABLET PO PRN (22:43)
[2023-04-27] MEDS ORDERED: BISMUTH SUBSALICYLATE 524 MG/30 ML PO PRN (22:43)
[2023-04-27] MEDS ORDERED: LOPERAMIDE HCL 2 MG CAPSULE PO PRN (22:43)
[2023-04-27] MEDS ORDERED: NALOXONE HCL 0.4 MG/ML VIAL IM PRN (22:43)
[2023-04-27] MEDS ORDERED: POLYETHYLENE GLYCOL (HEALTHYLAX) 3350 17 GM PACKET PO PRN (22:43)
[2023-04-27] MEDS ORDERED: IBUPROFEN 600 MG TABLET (FP) PO PRN (22:43)
[2023-04-27] MEDS ORDERED: MELATONIN 5 MG TABLETS PO PRN (22:43)
[2023-04-27] MEDS ORDERED: ACETAMINOPHEN 325 MG TABLET (FP) PO PRN (22:43)
[2023-04-27] MEDS ORDERED: guaiFENesin 600 MG TABLET.ER (FP) PO PRN (22:43)
[2023-04-27] MEDS ORDERED: ONDANSETRON *ODT* 4 MG TABLET SL PRN (22:43)
[2023-04-27] MEDS ORDERED: hydrOXYzine PAMOATE 25 MG CAPSULE (FP) PO PRN (22:43)
[2023-04-27] MEDS ORDERED: MAG HYDROX/AL HYDROX/SIMETH 30 ML UNIT-DOSE CUP PO PRN (22:43)
[2023-04-27] MEDS: METHOCARBAMOL 500 MG TABLET PO PRN (23:36)
[2023-04-28 09:25] LABS: HEMATOCRIT 35.1 % (35.4-49); HEMOGLOBIN 11.9 GM/dL (11.7-16.9); MCH 27.6 pg (25.7-33.7); MCHC 33.9 g/dl (32.0-35.9); MEAN CELL VOLUME 81.3 fl (80-96); MEAN PLT VOLUME 9.6 fl (7.5-11.1); PLATELET COUNT 196 10^3/uL (134-434); RBC 4.31 M/mm3 (4.00-5.60); RDW 14.1 % (11.9-15.9); WHITE BLOOD COUNT 5.8 K/mm3 (4.0-10.0)
[2023-04-28 09:33] LABS: POTASSIUM 4.8 mmol/L (3.5-5.1)
[2023-04-28 09:34] LABS: CALCIUM 8.8 mg/dL (8.5-10.1)
[2023-04-28 09:37] LABS: BLOOD UREA NITROGEN 28.1 mg/dL (7-18)
[2023-04-28 09:40] LABS: CREATININE 1.1 mg/dL (0.55-1.3)
[2023-04-28 09:42] LABS: BILIRUBIN,TOTAL 0.2 mg/dL (0.2-1); TOT PROT 6.2 g/dl (6.4-8.2)
[2023-04-28] MEDS: PRENATAL VITAMINS W/ FOLIC ACID TABLET (FP) PO SCH (10:57)
[2023-04-28] MEDS: METHOCARBAMOL 500 MG TABLET PO PRN ×2 (10:58→18:14)
[2023-04-28] MEDS: NICOTINE 14 MG/24 HOURS TOPICAL PATCH TD SCH (10:59)
[2023-04-28] MEDS: methaDONE HCL 40 MG DISPERSABLE TABLET PO SCH (14:10)
[2023-04-28] MEDS ORDERED: THIAMINE HCL 100 MG TABLET (FP) PO SCH (22:00)
[2023-04-29] MEDS: methaDONE HCL 40 MG DISPERSABLE TABLET PO SCH (05:44)
[2023-04-29 06:37] VITALS: TEMP 97.3
[2023-04-29 09:28] VITALS: BP 138/91; PULSE 67; RESP 18
[2023-04-29] MEDS: PRENATAL VITAMINS W/ FOLIC ACID TABLET (FP) PO SCH (11:40)
[2023-04-29] MEDS: NICOTINE 14 MG/24 HOURS TOPICAL PATCH TD SCH (11:40)
== END 2023-04-29 09:45 | disposition home or self-care (01) | DRG 773 ==
LOC: YASAS 19:47 → Y6N 23:06
PROVIDERS: ADMIT Allergy & Immunology; ATTEND Surgery
PROC: HZ2ZZZZ Detoxification Services for Substance Abuse Treatment (ICD-10-PCS; principal; 2023-04-27)
DX: F13.230 Sedative, hypnotic or anxiolytic dependence with withdrawal, uncomplicated (principal); F11.20 Opioid dependence, uncomplicated; F12.20 Cannabis dependence, uncomplicated; F17.210 Nicotine dependence, cigarettes, uncomplicated; R73.9 Hyperglycemia, unspecified; R74.01 Elevation of levels of liver transaminase levels
CPT/HCPCS: 36415; 80053; 85027; 86780; 87635

== ENCOUNTER 2023-05-01 19:58 | Inpatient (IN) | payer OTHER ==
[2023-05-01 21:11] VITALS: BMI 34.4
[2023-05-01] MEDS ORDERED: guaiFENesin 600 MG TABLET.ER (FP) PO PRN (21:52)
[2023-05-01] MEDS ORDERED: LOPERAMIDE HCL 2 MG CAPSULE PO PRN (21:52)
[2023-05-01] MEDS ORDERED: MAG HYDROX/AL HYDROX/SIMETH 30 ML UNIT-DOSE CUP PO PRN (21:52)
[2023-05-01] MEDS ORDERED: MAGNESIUM HYDROX 2400MG/30ML ORAL SUSPENSION 30 ML CUP PO PRN (21:52)
[2023-05-01] MEDS ORDERED: BENZONATATE 200 MG CAPSULE PO PRN (21:52)
[2023-05-01] MEDS ORDERED: NALOXONE HCL 0.4 MG/ML VIAL IVPUSH PRN (21:52)
[2023-05-01] MEDS ORDERED: AMMONIUM LACTATE 12% LOTION 225 GM BOTTLE TP PRN (21:52)
[2023-05-01] MEDS ORDERED: NALOXONE HCL (KLOXXADO) 8 MG SPRAY NS PRN (21:52)
[2023-05-01] MEDS ORDERED: BENZOCAINE/MENTHOL (CHLORASEPTIC ) LOZENGE MM PRN (21:52)
[2023-05-01] MEDS ORDERED: POLYETHYLENE GLYCOL (HEALTHYLAX) 3350 17 GM PACKET PO PRN (21:52)
[2023-05-02] MEDS: MELATONIN 5 MG TABLETS PO SCH ×2 (06:07→21:12)
[2023-05-02] MEDS: THIAMINE HCL 100 MG TABLET (FP) PO SCH ×2 (06:07→21:12)
[2023-05-02] MEDS: INSULIN SLIDING SCALE (NOVOLOG) 1 VIAL SQ SCH ×6 (06:15→21:44)
[2023-05-02] MEDS ORDERED: INSULIN (NOVOLOG) ASPART 100 UNITS/ML 10ML VIAL ONE ×4 (06:56→21:43)
[2023-05-02] MEDS ORDERED: TUBERCULIN PPD 5 TU/0.1ML VIAL ID ONE ×2 (07:58→11:00)
[2023-05-02] MEDS: methaDONE HCL 40 MG DISPERSABLE TABLET PO SCH (08:00)
[2023-05-02] MEDS: PRENATAL VITAMINS W/ FOLIC ACID TABLET (FP) PO SCH (10:00)
[2023-05-02] MEDS: levETIRAcetam 500 MG TABLET (FP) PO SCH (21:44)
[2023-05-03] MEDS: INSULIN SLIDING SCALE (NOVOLOG) 1 VIAL SQ SCH ×4 (06:48→21:21)
[2023-05-03] MEDS ORDERED: INSULIN (NOVOLOG) ASPART 100 UNITS/ML 10ML VIAL ONE ×4 (06:49→21:32)
[2023-05-03] MEDS: methaDONE HCL 40 MG DISPERSABLE TABLET PO SCH (06:49)
[2023-05-03] MEDS: levETIRAcetam 500 MG TABLET (FP) PO SCH (09:16)
[2023-05-03] MEDS: PRENATAL VITAMINS W/ FOLIC ACID TABLET (FP) PO SCH (09:16)
[2023-05-03] MEDS: IBUPROFEN 600 MG TABLET (FP) PO PRN (09:17)
[2023-05-03] MEDS: METHOCARBAMOL 500 MG TABLET PO PRN (21:19)
[2023-05-03] MEDS: THIAMINE HCL 100 MG TABLET (FP) PO SCH (21:19)
[2023-05-03] MEDS: MELATONIN 5 MG TABLETS PO SCH (21:19)
[2023-05-04] MEDS: methaDONE HCL 40 MG DISPERSABLE TABLET PO SCH (06:57)
[2023-05-04] MEDS: INSULIN SLIDING SCALE (NOVOLOG) 1 VIAL SQ SCH ×5 (06:58→21:04)
[2023-05-04] MEDS ORDERED: INSULIN (NOVOLOG) ASPART 100 UNITS/ML 10ML VIAL ONE ×2 (07:11→11:54)
[2023-05-04] MEDS: levETIRAcetam 500 MG TABLET (FP) PO SCH (09:45)
[2023-05-04] MEDS: METHOCARBAMOL 500 MG TABLET PO PRN ×2 (09:45→21:03)
[2023-05-04] MEDS: PRENATAL VITAMINS W/ FOLIC ACID TABLET (FP) PO SCH (09:45)
[2023-05-04] MEDS: IBUPROFEN 600 MG TABLET (FP) PO PRN (09:45)
[2023-05-04] MEDS: IBUPROFEN 400 MG TABLET (FP) PO PRN (15:44)
[2023-05-04] MEDS: THIAMINE HCL 100 MG TABLET (FP) PO SCH (21:03)
[2023-05-04] MEDS: MELATONIN 5 MG TABLETS PO SCH (21:04)
[2023-05-04] MEDS: hydrOXYzine PAMOATE 25 MG CAPSULE (FP) PO PRN (21:04)
[2023-05-04] MEDS ORDERED: diphenhydrAMINE HCL 25 MG CAPSULE (FP) PO PRN (22:00)
[2023-05-05] MEDS: methaDONE HCL 40 MG DISPERSABLE TABLET PO SCH (05:55)
[2023-05-05] MEDS ORDERED: INSULIN (NOVOLOG) ASPART 100 UNITS/ML 10ML VIAL ONE (06:59)
[2023-05-05] MEDS: INSULIN SLIDING SCALE (NOVOLOG) 1 VIAL SQ SCH ×4 (07:00→21:14)
[2023-05-05] MEDS: METHOCARBAMOL 500 MG TABLET PO PRN ×2 (07:50→21:11)
[2023-05-05] MEDS: IBUPROFEN 400 MG TABLET (FP) PO PRN (07:51)
[2023-05-05] MEDS: levETIRAcetam 500 MG TABLET (FP) PO SCH (09:38)
[2023-05-05] MEDS: PRENATAL VITAMINS W/ FOLIC ACID TABLET (FP) PO SCH (09:38)
[2023-05-05] MEDS: IBUPROFEN 600 MG TABLET (FP) PO PRN (15:24)
[2023-05-05] MEDS: THIAMINE HCL 100 MG TABLET (FP) PO SCH (21:11)
[2023-05-05] MEDS: MELATONIN 5 MG TABLETS PO SCH (21:11)
[2023-05-06] MEDS: methaDONE HCL 40 MG DISPERSABLE TABLET PO SCH (06:02)
[2023-05-06] MEDS ORDERED: INSULIN (NOVOLOG) ASPART 100 UNITS/ML 10ML VIAL ONE ×4 (06:04→22:01)
[2023-05-06] MEDS: INSULIN SLIDING SCALE (NOVOLOG) 1 VIAL SQ SCH ×4 (06:05→21:06)
[2023-05-06] MEDS: levETIRAcetam 500 MG TABLET (FP) PO SCH (09:41)
[2023-05-06] MEDS: PRENATAL VITAMINS W/ FOLIC ACID TABLET (FP) PO SCH (09:41)
[2023-05-06] MEDS: IBUPROFEN 600 MG TABLET (FP) PO PRN (11:36)
[2023-05-06] MEDS: ACETAMINOPHEN 325 MG TABLET (FP) PO PRN (17:35)
[2023-05-06] MEDS: THIAMINE HCL 100 MG TABLET (FP) PO SCH (21:05)
[2023-05-06] MEDS: MELATONIN 5 MG TABLETS PO SCH (21:06)
[2023-05-07] MEDS: hydrOXYzine PAMOATE 25 MG CAPSULE (FP) PO PRN ×2 (02:16→21:28)
[2023-05-07] MEDS: methaDONE HCL 40 MG DISPERSABLE TABLET PO SCH (06:40)
[2023-05-07] MEDS: INSULIN SLIDING SCALE (NOVOLOG) 1 VIAL SQ SCH ×4 (08:21→21:27)
[2023-05-07] MEDS ORDERED: INSULIN (NOVOLOG) ASPART 100 UNITS/ML 10ML VIAL ONE ×2 (08:24→11:53)
[2023-05-07] MEDS: PRENATAL VITAMINS W/ FOLIC ACID TABLET (FP) PO SCH (09:49)
[2023-05-07] MEDS: levETIRAcetam 500 MG TABLET (FP) PO SCH (09:49)
[2023-05-07] MEDS ORDERED: DOCUSATE SODIUM 100 MG CAPSULE (FP) PO PRN (14:09)
[2023-05-07] MEDS ORDERED: HYDROCORTISONE 2.5% TOPICAL CREAM 30 GM TUBE RC PRN (14:10)
[2023-05-07] MEDS: IBUPROFEN 600 MG TABLET (FP) PO PRN (15:59)
[2023-05-07] MEDS: MELATONIN 5 MG TABLETS PO SCH (21:26)
[2023-05-07] MEDS: METHOCARBAMOL 500 MG TABLET PO PRN (21:27)
[2023-05-07] MEDS: THIAMINE HCL 100 MG TABLET (FP) PO SCH (21:27)
[2023-05-08] MEDS: INSULIN SLIDING SCALE (NOVOLOG) 1 VIAL SQ SCH ×4 (06:48→21:14)
[2023-05-08] MEDS: methaDONE HCL 40 MG DISPERSABLE TABLET PO SCH (06:49)
[2023-05-08] MEDS ORDERED: INSULIN (NOVOLOG) ASPART 100 UNITS/ML 10ML VIAL ONE ×2 (06:49→12:00)
[2023-05-08] MEDS: levETIRAcetam 500 MG TABLET (FP) PO SCH (09:29)
[2023-05-08] MEDS: PRENATAL VITAMINS W/ FOLIC ACID TABLET (FP) PO SCH (09:29)
[2023-05-08] MEDS: COLLOIDAL OATMEAL 1 BAR EACH TP PRN (09:31)
[2023-05-08] MEDS: NICOTINE POLACRILEX 2 MG GUM BUC PRN (12:42)
[2023-05-08] MEDS: IBUPROFEN 600 MG TABLET (FP) PO PRN (16:25)
[2023-05-08] MEDS: THIAMINE HCL 100 MG TABLET (FP) PO SCH (21:11)
[2023-05-08] MEDS: DOCUSATE SODIUM 100 MG CAPSULE (FP) PO SCH (21:12)
[2023-05-08] MEDS: MELATONIN 5 MG TABLETS PO SCH (21:12)
[2023-05-09] MEDS: methaDONE HCL 40 MG DISPERSABLE TABLET PO SCH (05:50)
[2023-05-09] MEDS: INSULIN SLIDING SCALE (NOVOLOG) 1 VIAL SQ SCH ×4 (08:01→21:02)
[2023-05-09] MEDS: MAGNESIUM HYDROX 2400MG/30ML ORAL SUSPENSION 30 ML CUP PO SCH (10:30)
[2023-05-09] MEDS: DOCUSATE SODIUM 100 MG CAPSULE (FP) PO SCH ×2 (10:30→21:01)
[2023-05-09] MEDS: levETIRAcetam 500 MG TABLET (FP) PO SCH (10:30)
[2023-05-09] MEDS: PRENATAL VITAMINS W/ FOLIC ACID TABLET (FP) PO SCH (10:30)
[2023-05-09] MEDS: NICOTINE POLACRILEX 2 MG GUM BUC PRN (10:31)
[2023-05-09] MEDS: IBUPROFEN 600 MG TABLET (FP) PO PRN (18:04)
[2023-05-09] MEDS: MELATONIN 5 MG TABLETS PO SCH (21:01)
[2023-05-09] MEDS: THIAMINE HCL 100 MG TABLET (FP) PO SCH (21:01)
[2023-05-09] MEDS: diphenhydrAMINE HCL 50 MG CAPSULE PO PRN (21:01)
[2023-05-10] MEDS: methaDONE HCL 40 MG DISPERSABLE TABLET PO SCH (06:16)
[2023-05-10] MEDS: INSULIN SLIDING SCALE (NOVOLOG) 1 VIAL SQ SCH ×4 (06:36→21:02)
[2023-05-10] MEDS: PRENATAL VITAMINS W/ FOLIC ACID TABLET (FP) PO SCH (09:54)
[2023-05-10] MEDS: levETIRAcetam 500 MG TABLET (FP) PO SCH (09:54)
[2023-05-10] MEDS: MAGNESIUM HYDROX 2400MG/30ML ORAL SUSPENSION 30 ML CUP PO SCH (09:54)
[2023-05-10] MEDS: DOCUSATE SODIUM 100 MG CAPSULE (FP) PO SCH ×2 (09:54→21:01)
[2023-05-10] MEDS: NICOTINE POLACRILEX 2 MG GUM BUC PRN (09:55)
[2023-05-10] MEDS: IBUPROFEN 600 MG TABLET (FP) PO PRN (12:15)
[2023-05-10] MEDS: ACETAMINOPHEN 325 MG TABLET (FP) PO PRN (16:19)
[2023-05-10] MEDS: THIAMINE HCL 100 MG TABLET (FP) PO SCH (21:01)
[2023-05-10] MEDS: diphenhydrAMINE HCL 50 MG CAPSULE PO PRN (21:01)
[2023-05-10] MEDS: MELATONIN 5 MG TABLETS PO SCH (21:01)
[2023-05-11] MEDS: methaDONE HCL 40 MG DISPERSABLE TABLET PO SCH (05:58)
[2023-05-11] MEDS: INSULIN SLIDING SCALE (NOVOLOG) 1 VIAL SQ SCH ×4 (05:59→21:16)
[2023-05-11] MEDS: DOCUSATE SODIUM 100 MG CAPSULE (FP) PO SCH ×2 (09:51→21:15)
[2023-05-11] MEDS: PRENATAL VITAMINS W/ FOLIC ACID TABLET (FP) PO SCH (09:51)
[2023-05-11] MEDS: MAGNESIUM HYDROX 2400MG/30ML ORAL SUSPENSION 30 ML CUP PO SCH (09:51)
[2023-05-11] MEDS: levETIRAcetam 500 MG TABLET (FP) PO SCH (09:51)
[2023-05-11] MEDS: IBUPROFEN 600 MG TABLET (FP) PO PRN (09:52)
[2023-05-11] MEDS: hydrOXYzine PAMOATE 25 MG CAPSULE (FP) PO PRN (09:54)
[2023-05-11] MEDS: IBUPROFEN 400 MG TABLET (FP) PO PRN (18:00)
[2023-05-11] MEDS: NICOTINE POLACRILEX 2 MG GUM BUC PRN (18:02)
[2023-05-11] MEDS: MELATONIN 5 MG TABLETS PO SCH (21:15)
[2023-05-11] MEDS: THIAMINE HCL 100 MG TABLET (FP) PO SCH (21:15)
[2023-05-11] MEDS: diphenhydrAMINE HCL 50 MG CAPSULE PO PRN (21:16)
[2023-05-12] MEDS: methaDONE HCL 40 MG DISPERSABLE TABLET PO SCH (06:16)
[2023-05-12] MEDS: INSULIN SLIDING SCALE (NOVOLOG) 1 VIAL SQ SCH ×4 (06:18→21:00)
[2023-05-12] MEDS: levETIRAcetam 500 MG TABLET (FP) PO SCH (09:58)
[2023-05-12] MEDS: DOCUSATE SODIUM 100 MG CAPSULE (FP) PO SCH ×2 (09:58→21:00)
[2023-05-12] MEDS: PRENATAL VITAMINS W/ FOLIC ACID TABLET (FP) PO SCH (09:58)
[2023-05-12] MEDS: MAGNESIUM HYDROX 2400MG/30ML ORAL SUSPENSION 30 ML CUP PO SCH (09:58)
[2023-05-12] MEDS: IBUPROFEN 600 MG TABLET (FP) PO PRN (15:45)
[2023-05-12] MEDS: hydrOXYzine PAMOATE 25 MG CAPSULE (FP) PO PRN (20:58)
[2023-05-12] MEDS: THIAMINE HCL 100 MG TABLET (FP) PO SCH (21:00)
[2023-05-12] MEDS: MELATONIN 5 MG TABLETS PO SCH (21:00)
[2023-05-13] MEDS: methaDONE HCL 40 MG DISPERSABLE TABLET PO SCH (05:29)
[2023-05-13] MEDS: INSULIN SLIDING SCALE (NOVOLOG) 1 VIAL SQ SCH ×4 (06:01→21:05)
[2023-05-13] MEDS: COLLOIDAL OATMEAL 1 BAR EACH TP PRN (07:12)
[2023-05-13] MEDS: MAGNESIUM HYDROX 2400MG/30ML ORAL SUSPENSION 30 ML CUP PO SCH (09:48)
[2023-05-13] MEDS: levETIRAcetam 500 MG TABLET (FP) PO SCH (09:48)
[2023-05-13] MEDS: DOCUSATE SODIUM 100 MG CAPSULE (FP) PO SCH ×2 (09:48→21:04)
[2023-05-13] MEDS: PRENATAL VITAMINS W/ FOLIC ACID TABLET (FP) PO SCH (09:49)
[2023-05-13] MEDS: IBUPROFEN 600 MG TABLET (FP) PO PRN (09:49)
[2023-05-13] MEDS: IBUPROFEN 400 MG TABLET (FP) PO PRN (18:33)
[2023-05-13] MEDS: hydrOXYzine PAMOATE 25 MG CAPSULE (FP) PO PRN (21:04)
[2023-05-13] MEDS: MELATONIN 5 MG TABLETS PO SCH (21:04)
[2023-05-13] MEDS: THIAMINE HCL 100 MG TABLET (FP) PO SCH (21:04)
[2023-05-14] MEDS: methaDONE HCL 40 MG DISPERSABLE TABLET PO SCH (06:34)
[2023-05-14] MEDS: INSULIN SLIDING SCALE (NOVOLOG) 1 VIAL SQ SCH ×4 (06:35→21:03)
[2023-05-14] MEDS: levETIRAcetam 500 MG TABLET (FP) PO SCH (09:00)
[2023-05-14] MEDS: DOCUSATE SODIUM 100 MG CAPSULE (FP) PO SCH ×2 (10:16→21:02)
[2023-05-14] MEDS: NICOTINE POLACRILEX 2 MG GUM BUC PRN (10:16)
[2023-05-14] MEDS: MAGNESIUM HYDROX 2400MG/30ML ORAL SUSPENSION 30 ML CUP PO SCH (10:16)
[2023-05-14] MEDS: PRENATAL VITAMINS W/ FOLIC ACID TABLET (FP) PO SCH (10:16)
[2023-05-14] MEDS: MELATONIN 5 MG TABLETS PO SCH (21:02)
[2023-05-14] MEDS: THIAMINE HCL 100 MG TABLET (FP) PO SCH (21:02)
[2023-05-15] MEDS: methaDONE HCL 40 MG DISPERSABLE TABLET PO SCH (06:13)
[2023-05-15] MEDS: INSULIN SLIDING SCALE (NOVOLOG) 1 VIAL SQ SCH (06:14)
[2023-05-15 06:53] VITALS: BP 120/85; PULSE 77; RESP 18; TEMP 97.7
[2023-05-15] MEDS: PRENATAL VITAMINS W/ FOLIC ACID TABLET (FP) PO SCH (09:22)
[2023-05-15] MEDS: DOCUSATE SODIUM 100 MG CAPSULE (FP) PO SCH (09:22)
[2023-05-15] MEDS: levETIRAcetam 500 MG TABLET (FP) PO SCH (09:22)
[2023-05-15] MEDS: MAGNESIUM HYDROX 2400MG/30ML ORAL SUSPENSION 30 ML CUP PO SCH (09:22)
[2023-05-15 12:10] LABS: MAGNESIUM 1.7 mg/dL (1.8-2.4)
[2023-05-15 12:35] LABS: POTASSIUM 5.2 mmol/L (3.5-5.1)
== END 2023-05-15 09:38 | disposition home or self-care (01) | DRG 772 ==
LOC: YASAS 19:58 → Y3E 05-02 01:32 → Y3W 05-08 13:29
PROVIDERS: ADMIT Allergy & Immunology; ATTEND Psychiatry & Neurology Pain Medicine
PROC: HZ42ZZZ Group Counseling for Substance Abuse Treatment, Cognitive-Behavioral (ICD-10-PCS; principal; 2023-05-02)
DX: F11.20 Opioid dependence, uncomplicated (principal); F13.20 Sedative, hypnotic or anxiolytic dependence, uncomplicated; F12.20 Cannabis dependence, uncomplicated; F17.210 Nicotine dependence, cigarettes, uncomplicated; F19.282 Other psychoactive substance dependence with psychoactive substance-induced sleep disorder; G40.909 Epilepsy, unspecified, not intractable, without status epilepticus; E11.9 Type 2 diabetes mellitus without complications; Z79.4 Long term (current) use of insulin; K92.1 Melena
CPT/HCPCS: 36415; 80177; 82962; 83036; 83735; 84132; 86803; 87635

== ENCOUNTER 2023-06-27 10:28 | Inpatient (IN) | payer OTHER ==
[2023-06-27 10:54] VITALS: BMI 35.4
[2023-06-27] MEDS ORDERED: BENZONATATE 200 MG CAPSULE PO PRN (11:27)
[2023-06-27] MEDS ORDERED: BENZOCAINE/MENTHOL (CHLORASEPTIC ) LOZENGE MM PRN (11:27)
[2023-06-27] MEDS ORDERED: ACETAMINOPHEN 325 MG TABLET (FP) PO PRN (11:27)
[2023-06-27] MEDS ORDERED: BUPRENORPHINE HCL 150 MCG, BUPRENORPHINE HCL 75 MCG BC ONE (11:27)
[2023-06-27] MEDS ORDERED: ONDANSETRON *ODT* 4 MG TABLET SL PRN (11:27)
[2023-06-27] MEDS ORDERED: hydrOXYzine PAMOATE 25 MG CAPSULE (FP) PO PRN (11:27)
[2023-06-27] MEDS ORDERED: IBUPROFEN 400 MG TABLET (FP) PO PRN (11:27)
[2023-06-27] MEDS ORDERED: NALOXONE HCL 0.4 MG/ML VIAL IM PRN (11:27)
[2023-06-27] MEDS ORDERED: NALOXONE HCL (KLOXXADO) 8 MG SPRAY NS PRN (11:27)
[2023-06-27] MEDS ORDERED: MAG HYDROX/AL HYDROX/SIMETH 30 ML UNIT-DOSE CUP PO PRN (11:27)
[2023-06-27] MEDS ORDERED: BISMUTH SUBSALICYLATE 524 MG/30 ML PO PRN (11:27)
[2023-06-27] MEDS ORDERED: DICYCLOMINE HCL 10 MG CAPSULE PO PRN (11:27)
[2023-06-27] MEDS ORDERED: POLYETHYLENE GLYCOL (HEALTHYLAX) 3350 17 GM PACKET PO PRN ×2 (11:27→11:30)
[2023-06-27] MEDS ORDERED: NICOTINE POLACRILEX 4 MG GUM BUC PRN (11:27)
[2023-06-27] MEDS ORDERED: IBUPROFEN 600 MG TABLET (FP) PO PRN (11:27)
[2023-06-27] MEDS ORDERED: METHOCARBAMOL 500 MG TABLET PO PRN (11:27)
[2023-06-27] MEDS ORDERED: LOPERAMIDE HCL 2 MG CAPSULE PO PRN (11:27)
[2023-06-27] MEDS ORDERED: MAGNESIUM HYDROX 2400MG/30ML ORAL SUSPENSION 30 ML CUP PO PRN (11:27)
[2023-06-27] MEDS ORDERED: guaiFENesin 600 MG TABLET.ER (FP) PO PRN (11:27)
[2023-06-27] MEDS ORDERED: cloNIDine HCL 0.1 MG TABLET PO ONE (11:27)
[2023-06-27] MEDS ORDERED: BUPRENORPHINE HCL 150 MCG, BUPRENORPHINE HCL 75 MCG BC PRN (11:27)
[2023-06-27] MEDS ORDERED: diazePAM 5 MG TABLET PO PRN (11:27)
[2023-06-27] MEDS ORDERED: BUPRENORPHINE HCL 150 MCG FILM BC ONE (12:25)
[2023-06-27] MEDS ORDERED: BUPRENORPHINE HCL 75 MCG FILM BC ONE (12:26)
[2023-06-27] MEDS ORDERED: cloNIDine HCL 0.1 MG TABLET ONE (12:26)
[2023-06-27] MEDS ORDERED: PRENATAL VITAMINS W/ FOLIC ACID TABLET (FP) PO ONE (12:26)
[2023-06-27] MEDS: PRENATAL VITAMINS W/ FOLIC ACID TABLET (FP) PO SCH (12:36)
[2023-06-27] MEDS: DOCUSATE SODIUM 100 MG CAPSULE (FP) PO SCH ×2 (12:37→22:43)
[2023-06-27] MEDS ORDERED: levETIRAcetam 500 MG TABLET (FP) PO SCH (13:01)
[2023-06-27] MEDS ORDERED: cloNIDine HCL 0.1 MG TABLET PO PRN (15:27)
[2023-06-27 15:49] LABS: HEMATOCRIT 35.5 % (35.4-49); MCH 27.6 pg (25.7-33.7); MCHC 33.9 g/dl (32.0-35.9); MEAN CELL VOLUME 81.6 fl (80-96); MEAN PLT VOLUME 10.3 fl (7.5-11.1); PLATELET COUNT 231 10^3/uL (134-434); RBC 4.34 M/mm3 (4.00-5.60); RDW 13.8 % (11.9-15.9); WHITE BLOOD COUNT 7.3 K/mm3 (4.0-10.0)
[2023-06-27 15:51] LABS: POTASSIUM 3.8 mmol/L (3.5-5.1)
[2023-06-27 15:53] LABS: CALCIUM 8.6 mg/dL (8.5-10.1)
[2023-06-27 15:54] LABS: ALBUMIN 3.2 g/dl (3.4-5.0); BLOOD UREA NITROGEN 10.2 mg/dL (7-18)
[2023-06-27 15:57] LABS: CREATININE 1.1 mg/dL (0.55-1.3)
[2023-06-27 15:58] LABS: BILIRUBIN,TOTAL 0.4 mg/dL (0.2-1)
[2023-06-27 16:39] VITALS: RESP 18
[2023-06-27] MEDS ORDERED: MELATONIN 5 MG TABLETS PO SCH ×2 (22:00)
[2023-06-27] MEDS ORDERED: THIAMINE HCL 100 MG TABLET (FP) PO SCH (22:00)
[2023-06-28] MEDS ORDERED: BUPRENORPHINE HCL 150 MCG, BUPRENORPHINE HCL 75 MCG BC PRN
[2023-06-28] MEDS ORDERED: BUPRENORPHINE HCL 150 MCG, BUPRENORPHINE HCL 75 MCG BC SCH (06:00)
[2023-06-28 09:34] VITALS: BP 132/84; PULSE 65; TEMP 98.1
[2023-06-28] MEDS ORDERED: levETIRAcetam 500 MG TABLET (FP) PO SCH (10:00)
[2023-06-28] MEDS: PRENATAL VITAMINS W/ FOLIC ACID TABLET (FP) PO SCH (10:22)
[2023-06-28] MEDS: DOCUSATE SODIUM 100 MG CAPSULE (FP) PO SCH (10:23)
[2023-06-29] MEDS ORDERED: BUPRENORPHINE HCL 450 MCG FILM BC SCH (06:00)
[2023-06-30] MEDS ORDERED: BUPRENORPHINE/NALOXONE 4 MG/1 MG FILM PACKET SL SCH (06:00)
[2023-07-01] MEDS ORDERED: BUPRENORPHINE/NALOXONE 8 MG/2 MG FILM PACKET SL ONE (06:00)
== END 2023-06-28 10:56 | disposition left against medical advice (07) | DRG 770 ==
LOC: YASAS 10:28 → Y6N 12:23
PROVIDERS: ADMIT Allergy & Immunology; ATTEND Surgery
PROC: HZ2ZZZZ Detoxification Services for Substance Abuse Treatment (ICD-10-PCS; principal; 2023-06-27)
DX: F11.23 Opioid dependence with withdrawal (principal); F17.213 Nicotine dependence, cigarettes, with withdrawal; G40.909 Epilepsy, unspecified, not intractable, without status epilepticus; R73.9 Hyperglycemia, unspecified; R94.5 Abnormal results of liver function studies; E66.9 Obesity, unspecified; Z68.35 Body mass index [BMI] 35.0-35.9, adult; R26.2 Difficulty in walking, not elsewhere classified; Z99.89 Dependence on other enabling machines and devices; Z59.00 Homelessness unspecified
CPT/HCPCS: 36415; 80053; 80177; 80305; 85027; 86780; 87635; 87811

== ENCOUNTER 2023-07-05 12:57 | Inpatient (IN) | payer OTHER ==
[2023-07-05 13:49] VITALS: BMI 34.1
[2023-07-05] MEDS ORDERED: ONDANSETRON *ODT* 4 MG TABLET SL PRN (15:46)
[2023-07-05] MEDS ORDERED: POLYETHYLENE GLYCOL (HEALTHYLAX) 3350 17 GM PACKET PO PRN (15:46)
[2023-07-05] MEDS ORDERED: BISMUTH SUBSALICYLATE 524 MG/30 ML PO PRN (15:46)
[2023-07-05] MEDS ORDERED: DICYCLOMINE HCL 10 MG CAPSULE PO PRN (15:46)
[2023-07-05] MEDS ORDERED: ACETAMINOPHEN 325 MG TABLET (FP) PO PRN (15:46)
[2023-07-05] MEDS ORDERED: BENZOCAINE/MENTHOL (CHLORASEPTIC ) LOZENGE MM PRN (15:46)
[2023-07-05] MEDS ORDERED: LOPERAMIDE HCL 2 MG CAPSULE PO PRN (15:46)
[2023-07-05] MEDS ORDERED: hydrOXYzine PAMOATE 25 MG CAPSULE (FP) PO PRN (15:46)
[2023-07-05] MEDS ORDERED: MAG HYDROX/AL HYDROX/SIMETH 30 ML UNIT-DOSE CUP PO PRN (15:46)
[2023-07-05] MEDS ORDERED: BENZONATATE 200 MG CAPSULE PO PRN (15:46)
[2023-07-05] MEDS ORDERED: IBUPROFEN 600 MG TABLET (FP) PO PRN (15:46)
[2023-07-05] MEDS ORDERED: NALOXONE HCL 0.4 MG/ML VIAL IM PRN (15:46)
[2023-07-05] MEDS ORDERED: guaiFENesin 600 MG TABLET.ER (FP) PO PRN (15:46)
[2023-07-05] MEDS ORDERED: NALOXONE HCL (KLOXXADO) 8 MG SPRAY NS PRN (15:46)
[2023-07-05] MEDS ORDERED: IBUPROFEN 400 MG TABLET (FP) PO PRN (15:46)
[2023-07-05] MEDS ORDERED: MAGNESIUM HYDROX 2400MG/30ML ORAL SUSPENSION 30 ML CUP PO PRN (15:46)
[2023-07-05] MEDS ORDERED: NICOTINE POLACRILEX 4 MG GUM BUC PRN (15:46)
[2023-07-05] MEDS ORDERED: methaDONE HCL 10 MG TABLET (FOR DETOX USE ONLY) PO ONE (15:49)
[2023-07-05] MEDS ORDERED: cloNIDine HCL 0.1 MG TABLET PO PRN (15:49)
[2023-07-05] MEDS ORDERED: methaDONE HCL 10 MG TABLET (FOR DETOX USE ONLY) ONE (17:59)
[2023-07-05] MEDS: levETIRAcetam 500 MG TABLET (FP) PO SCH (22:25)
[2023-07-05] MEDS: DOCUSATE SODIUM 100 MG CAPSULE (FP) PO SCH (22:25)
[2023-07-05] MEDS: MELATONIN 5 MG TABLETS PO SCH (22:25)
[2023-07-05] MEDS: THIAMINE HCL 100 MG TABLET (FP) PO SCH (22:25)
[2023-07-05] MEDS: METHOCARBAMOL 500 MG TABLET PO PRN (22:26)
[2023-07-06] MEDS: levETIRAcetam 500 MG TABLET (FP) PO SCH ×2 (09:50→22:17)
[2023-07-06] MEDS: NICOTINE 21 MG/24 HOURS TOPICAL PATCH TD SCH (09:50)
[2023-07-06] MEDS: PRENATAL VITAMINS W/ FOLIC ACID TABLET (FP) PO SCH (09:50)
[2023-07-06] MEDS: METHOCARBAMOL 500 MG TABLET PO PRN (09:50)
[2023-07-06] MEDS: DOCUSATE SODIUM 100 MG CAPSULE (FP) PO SCH ×2 (09:50→22:17)
[2023-07-06] MEDS: THIAMINE HCL 100 MG TABLET (FP) PO SCH (22:17)
[2023-07-06] MEDS: MELATONIN 5 MG TABLETS PO SCH (22:17)
[2023-07-07 09:33] VITALS: BP 123/78; PULSE 67; RESP 18; TEMP 96.8
[2023-07-07] MEDS: NICOTINE 21 MG/24 HOURS TOPICAL PATCH TD SCH (09:47)
[2023-07-07] MEDS: DOCUSATE SODIUM 100 MG CAPSULE (FP) PO SCH (09:47)
[2023-07-07] MEDS: levETIRAcetam 500 MG TABLET (FP) PO SCH (09:47)
[2023-07-07] MEDS: PRENATAL VITAMINS W/ FOLIC ACID TABLET (FP) PO SCH (09:48)
[2023-07-07] MEDS ORDERED: methaDONE HCL 10 MG TABLET (FOR DETOX USE ONLY) PO ONE (10:00)
[2023-07-09] MEDS ORDERED: methaDONE HCL 10 MG TABLET (FOR DETOX USE ONLY) PO ONE (10:00)
== END 2023-07-07 09:23 | disposition left against medical advice (07) | DRG 770 ==
LOC: YASAS 12:57 → Y3N 16:55
PROVIDERS: ADMIT Allergy & Immunology; ATTEND Allergy & Immunology
PROC: HZ2ZZZZ Detoxification Services for Substance Abuse Treatment (ICD-10-PCS; principal; 2023-07-05)
DX: F11.23 Opioid dependence with withdrawal (principal); F14.20 Cocaine dependence, uncomplicated; F17.210 Nicotine dependence, cigarettes, uncomplicated; R56.9 Unspecified convulsions; Z59.00 Homelessness unspecified
CPT/HCPCS: 87635; 93005; 93010

== ENCOUNTER 2023-08-04 11:11 | Inpatient (IN) | payer OTHER ==
[2023-08-04 11:51] VITALS: BMI 31.9
[2023-08-04] MEDS ORDERED: BENZONATATE 200 MG CAPSULE PO PRN (15:10)
[2023-08-04] MEDS ORDERED: IBUPROFEN 400 MG TABLET (FP) PO PRN (15:10)
[2023-08-04] MEDS ORDERED: cloNIDine HCL 0.1 MG TABLET PO PRN (15:10)
[2023-08-04] MEDS ORDERED: LOPERAMIDE HCL 2 MG CAPSULE PO PRN (15:10)
[2023-08-04] MEDS ORDERED: guaiFENesin 600 MG TABLET.ER (FP) PO PRN (15:10)
[2023-08-04] MEDS ORDERED: methaDONE HCL 10 MG TABLET (FOR DETOX USE ONLY) PO ONE (15:10)
[2023-08-04] MEDS ORDERED: IBUPROFEN 600 MG TABLET (FP) PO PRN (15:10)
[2023-08-04] MEDS ORDERED: METHOCARBAMOL 500 MG TABLET PO PRN (15:10)
[2023-08-04] MEDS ORDERED: DICYCLOMINE HCL 10 MG CAPSULE PO PRN (15:10)
[2023-08-04] MEDS ORDERED: hydrOXYzine PAMOATE 25 MG CAPSULE (FP) PO PRN (15:10)
[2023-08-04] MEDS ORDERED: BENZOCAINE/MENTHOL (CHLORASEPTIC ) LOZENGE MM PRN (15:10)
[2023-08-04] MEDS ORDERED: MAGNESIUM HYDROX 2400MG/30ML ORAL SUSPENSION 30 ML CUP PO PRN (15:10)
[2023-08-04] MEDS ORDERED: NALOXONE HCL (KLOXXADO) 8 MG SPRAY NS PRN (15:10)
[2023-08-04] MEDS ORDERED: POLYETHYLENE GLYCOL (HEALTHYLAX) 3350 17 GM PACKET PO PRN (15:10)
[2023-08-04] MEDS ORDERED: MAG HYDROX/AL HYDROX/SIMETH 30 ML UNIT-DOSE CUP PO PRN (15:10)
[2023-08-04] MEDS ORDERED: ACETAMINOPHEN 325 MG TABLET (FP) PO PRN (15:10)
[2023-08-04] MEDS ORDERED: ONDANSETRON *ODT* 4 MG TABLET SL PRN (15:10)
[2023-08-04] MEDS ORDERED: NALOXONE HCL 0.4 MG/ML VIAL IM PRN (15:10)
[2023-08-04] MEDS ORDERED: BISMUTH SUBSALICYLATE 524 MG/30 ML PO PRN (15:10)
[2023-08-04] MEDS ORDERED: diazePAM 5 MG TABLET PO PRN (15:18)
[2023-08-04] MEDS ORDERED: methaDONE HCL 10 MG TABLET (FOR DETOX USE ONLY) ONE (15:31)
[2023-08-04] MEDS: THIAMINE HCL 100 MG TABLET (FP) PO SCH (21:54)
[2023-08-04] MEDS: levETIRAcetam 500 MG TABLET (FP) PO SCH (21:55)
[2023-08-04] MEDS ORDERED: MELATONIN 5 MG TABLETS PO SCH (22:00)
[2023-08-05] MEDS ORDERED: PRENATAL VITAMINS W/ FOLIC ACID TABLET (FP) PO SCH (10:00)
[2023-08-05 10:21] LABS: POTASSIUM 4.7 mmol/L (3.5-5.1)
[2023-08-05] MEDS: levETIRAcetam 500 MG TABLET (FP) PO SCH ×2 (10:21→22:29)
[2023-08-05 10:28] LABS: HEMATOCRIT 40.9 % (35.4-49); HEMOGLOBIN 13.2 GM/dL (11.7-16.9); MCH 27.2 pg (25.7-33.7); MCHC 32.3 g/dl (32.0-35.9); MEAN CELL VOLUME 84.3 fl (80-96); MEAN PLT VOLUME 10.1 fl (7.5-11.1); PLATELET COUNT 180 10^3/uL (134-434); RBC 4.85 M/mm3 (4.00-5.60); WHITE BLOOD COUNT 5.7 K/mm3 (4.0-10.0)
[2023-08-05 10:30] LABS: ALBUMIN 3.2 g/dl (3.4-5.0); BLOOD UREA NITROGEN 15.3 mg/dL (7-18); CALCIUM 8.4 mg/dL (8.5-10.1)
[2023-08-05 10:33] LABS: CREATININE 1.3 mg/dL (0.55-1.3)
[2023-08-05 10:35] LABS: BILIRUBIN,TOTAL 0.4 mg/dL (0.2-1); TOT PROT 6.1 g/dl (6.4-8.2)
[2023-08-05] MEDS ORDERED: diphenhydrAMINE HCL 25 MG CAPSULE (FP) PO PRN (22:00)
[2023-08-05] MEDS: THIAMINE HCL 100 MG TABLET (FP) PO SCH (22:29)
[2023-08-06 09:05] VITALS: BP 136/82; PULSE 66; RESP 17; TEMP 97.9
[2023-08-06] MEDS ORDERED: methaDONE HCL 10 MG TABLET (FOR DETOX USE ONLY) PO ONE (10:00)
[2023-08-08] MEDS ORDERED: methaDONE HCL 10 MG TABLET (FOR DETOX USE ONLY) PO ONE (10:00)
== END 2023-08-06 10:25 | disposition left against medical advice (07) | DRG 770 ==
LOC: YASAS 11:11 → Y3N 15:17
PROVIDERS: ADMIT Allergy & Immunology; ATTEND Surgery
PROC: HZ2ZZZZ Detoxification Services for Substance Abuse Treatment (ICD-10-PCS; principal; 2023-08-04)
DX: F11.23 Opioid dependence with withdrawal (principal); F14.20 Cocaine dependence, uncomplicated; F17.210 Nicotine dependence, cigarettes, uncomplicated; F19.24 Other psychoactive substance dependence with psychoactive substance-induced mood disorder; F41.8 Other specified anxiety disorders; G40.909 Epilepsy, unspecified, not intractable, without status epilepticus; R73.9 Hyperglycemia, unspecified; Z56.0 Unemployment, unspecified; Z59.00 Homelessness unspecified
CPT/HCPCS: 36415; 80053; 85027; 86780; 87635; 87811; 93005; 93010

== ENCOUNTER 2023-10-04 12:06 | Inpatient (IN) | payer OTHER ==
[2023-10-04 12:32] VITALS: BMI 34.4
[2023-10-04] MEDS ORDERED: BISMUTH SUBSALICYLATE 524 MG/30 ML PO PRN (13:00)
[2023-10-04] MEDS ORDERED: ONDANSETRON *ODT* 4 MG TABLET SL PRN (13:00)
[2023-10-04] MEDS ORDERED: IBUPROFEN 400 MG TABLET (FP) PO PRN (13:00)
[2023-10-04] MEDS ORDERED: NALOXONE HCL 0.4 MG/ML VIAL IM PRN (13:00)
[2023-10-04] MEDS ORDERED: MAG HYDROX/AL HYDROX/SIMETH 30 ML UNIT-DOSE CUP PO PRN (13:00)
[2023-10-04] MEDS ORDERED: LOPERAMIDE HCL 2 MG CAPSULE PO PRN (13:00)
[2023-10-04] MEDS ORDERED: BENZONATATE 200 MG CAPSULE PO PRN (13:00)
[2023-10-04] MEDS ORDERED: ACETAMINOPHEN 325 MG TABLET (FP) PO PRN (13:00)
[2023-10-04] MEDS ORDERED: NALOXONE HCL (KLOXXADO) 8 MG SPRAY NS PRN (13:00)
[2023-10-04] MEDS ORDERED: MAGNESIUM HYDROX 2400MG/30ML ORAL SUSPENSION 30 ML CUP PO PRN (13:00)
[2023-10-04] MEDS ORDERED: POLYETHYLENE GLYCOL (HEALTHYLAX) 3350 17 GM PACKET PO PRN (13:00)
[2023-10-04] MEDS ORDERED: BENZOCAINE/MENTHOL (CHLORASEPTIC ) LOZENGE MM PRN (13:00)
[2023-10-04] MEDS ORDERED: guaiFENesin 600 MG TABLET.ER (FP) PO PRN (13:00)
[2023-10-04] MEDS ORDERED: DICYCLOMINE HCL 10 MG CAPSULE PO PRN (13:00)
[2023-10-04] MEDS ORDERED: methaDONE HCL 10 MG TABLET (FOR DETOX USE ONLY) PO ONE (13:30)
[2023-10-04] MEDS: NICOTINE 14 MG/24 HOURS TOPICAL PATCH TD SCH (13:31)
[2023-10-04] MEDS ORDERED: methaDONE HCL 10 MG TABLET (FOR DETOX USE ONLY) ONE (13:32)
[2023-10-04] MEDS ORDERED: PRENATAL VITAMINS W/ FOLIC ACID TABLET (FP) PO ONE (13:32)
[2023-10-04] MEDS: PRENATAL VITAMINS W/ FOLIC ACID TABLET (FP) PO SCH (13:35)
[2023-10-04] MEDS: cloNIDine HCL 0.1 MG TABLET PO PRN (17:13)
[2023-10-04] MEDS: IBUPROFEN 600 MG TABLET (FP) PO PRN (17:13)
[2023-10-04] MEDS: hydrOXYzine PAMOATE 25 MG CAPSULE (FP) PO PRN (17:19)
[2023-10-04] MEDS ORDERED: MELATONIN 5 MG TABLETS PO SCH (22:00)
[2023-10-04] MEDS: THIAMINE HCL 100 MG TABLET (FP) PO SCH (22:23)
[2023-10-04] MEDS: diphenhydrAMINE HCL 25 MG CAPSULE (FP) PO PRN (22:23)
[2023-10-04] MEDS: METHOCARBAMOL 500 MG TABLET PO PRN (22:23)
[2023-10-05] MEDS: PRENATAL VITAMINS W/ FOLIC ACID TABLET (FP) PO SCH (10:03)
[2023-10-05] MEDS: NICOTINE 14 MG/24 HOURS TOPICAL PATCH TD SCH (10:03)
[2023-10-05] MEDS: METHOCARBAMOL 500 MG TABLET PO PRN ×2 (11:15→22:12)
[2023-10-05] MEDS ORDERED: NICOTINE POLACRILEX 2 MG GUM BUC PRN (12:15)
[2023-10-05 12:28] LABS: HEMATOCRIT 42.2 % (35.4-49); HEMOGLOBIN 13.3 GM/dL (11.7-16.9); MCH 26.3 pg (25.7-33.7); MCHC 31.5 g/dl (32.0-35.9); MEAN CELL VOLUME 83.7 fl (80-96); PLATELET COUNT 275 10^3/uL (134-434); RBC 5.05 M/mm3 (4.00-5.60); RDW 14.5 % (11.9-15.9); WHITE BLOOD COUNT 6.8 K/mm3 (4.0-10.0)
[2023-10-05 12:33] LABS: CALCIUM 9.1 mg/dL (8.5-10.1)
[2023-10-05 12:34] LABS: ALBUMIN 3.7 g/dl (3.4-5.0); BLOOD UREA NITROGEN 19.1 mg/dL (7-18)
[2023-10-05 12:37] LABS: CREATININE 1.1 mg/dL (0.55-1.3)
[2023-10-05 12:39] LABS: BILIRUBIN,TOTAL 0.4 mg/dL (0.2-1); TOT PROT 6.8 g/dl (6.4-8.2)
[2023-10-05 12:41] LABS: POTASSIUM 5.3 mmol/L (3.5-5.1)
[2023-10-05 13:42] LABS: HIV INTERPRETATION NEGATIVE (NEGATIVE)
[2023-10-05] MEDS ORDERED: SODIUM POLYSTYRENE SULFONATE 15 GM/60 ML BOTTLE PO ONE (15:05)
[2023-10-05] MEDS: IBUPROFEN 600 MG TABLET (FP) PO PRN (15:48)
[2023-10-05] MEDS ORDERED: INSULIN (NOVOLOG) ASPART 100 UNITS/ML 10ML VIAL ONE ×2 (17:46→22:14)
[2023-10-05] MEDS: INSULIN SLIDING SCALE (NOVOLOG) 1 VIAL SQ SCH ×2 (17:51→22:12)
[2023-10-05] MEDS: cloNIDine HCL 0.1 MG TABLET PO PRN (20:43)
[2023-10-05] MEDS: THIAMINE HCL 100 MG TABLET (FP) PO SCH (22:12)
[2023-10-05] MEDS: diphenhydrAMINE HCL 25 MG CAPSULE (FP) PO PRN (22:13)
[2023-10-06] MEDS: INSULIN SLIDING SCALE (NOVOLOG) 1 VIAL SQ SCH ×4 (07:50→21:12)
[2023-10-06] MEDS ORDERED: INSULIN (NOVOLOG) ASPART 100 UNITS/ML 10ML VIAL ONE ×2 (08:00→16:36)
[2023-10-06] MEDS ORDERED: methaDONE HCL 10 MG TABLET (FOR DETOX USE ONLY) PO ONE (10:00)
[2023-10-06] MEDS: PRENATAL VITAMINS W/ FOLIC ACID TABLET (FP) PO SCH (10:07)
[2023-10-06] MEDS: IBUPROFEN 600 MG TABLET (FP) PO PRN ×2 (10:08→18:52)
[2023-10-06] MEDS: cloNIDine HCL 0.1 MG TABLET PO PRN (15:39)
[2023-10-06] MEDS: METHOCARBAMOL 500 MG TABLET PO PRN ×2 (15:40→21:12)
[2023-10-06 16:01] LABS: POTASSIUM 5.3 mmol/L (3.5-5.1)
[2023-10-06 16:12] LABS: ALBUMIN 3.8 g/dl (3.4-5.0); CALCIUM 9.3 mg/dL (8.5-10.1)
[2023-10-06 16:17] LABS: BILIRUBIN,TOTAL 0.5 mg/dL (0.2-1); TOT PROT 7.4 g/dl (6.4-8.2)
[2023-10-06] MEDS ORDERED: SODIUM POLYSTYRENE SULFONATE 15 GM/60 ML BOTTLE PO ONE (17:56)
[2023-10-06] MEDS: THIAMINE HCL 100 MG TABLET (FP) PO SCH (21:12)
[2023-10-06] MEDS: hydrOXYzine PAMOATE 25 MG CAPSULE (FP) PO PRN (21:12)
[2023-10-07] MEDS: INSULIN SLIDING SCALE (NOVOLOG) 1 VIAL SQ SCH ×4 (07:21→21:42)
[2023-10-07] MEDS: PRENATAL VITAMINS W/ FOLIC ACID TABLET (FP) PO SCH (09:56)
[2023-10-07] MEDS ORDERED: INSULIN (NOVOLOG) ASPART 100 UNITS/ML 10ML VIAL ONE ×2 (11:48→16:53)
[2023-10-07] MEDS: SODIUM ZIRCONIUM CYCLOSILICATE (LOKELMA) 5 GM PACKET PO SCH (14:30)
[2023-10-07] MEDS: METHOCARBAMOL 500 MG TABLET PO PRN ×2 (14:31→20:43)
[2023-10-07] MEDS: hydrOXYzine PAMOATE 25 MG CAPSULE (FP) PO PRN (14:31)
[2023-10-07] MEDS: IBUPROFEN 600 MG TABLET (FP) PO PRN (17:05)
[2023-10-07] MEDS: diphenhydrAMINE HCL 25 MG CAPSULE (FP) PO PRN (20:43)
[2023-10-07] MEDS: THIAMINE HCL 100 MG TABLET (FP) PO SCH (21:42)
[2023-10-08] MEDS: INSULIN SLIDING SCALE (NOVOLOG) 1 VIAL SQ SCH ×2 (06:56→07:24)
[2023-10-08] MEDS ORDERED: INSULIN (NOVOLOG) ASPART 100 UNITS/ML 10ML VIAL ONE (07:18)
[2023-10-08 09:04] VITALS: BP 159/95; PULSE 81; RESP 17; TEMP 97.8
[2023-10-08] MEDS: PRENATAL VITAMINS W/ FOLIC ACID TABLET (FP) PO SCH (09:59)
[2023-10-08] MEDS ORDERED: methaDONE HCL 10 MG TABLET (FOR DETOX USE ONLY) PO ONE (10:00)
[2023-10-08] MEDS: SODIUM ZIRCONIUM CYCLOSILICATE (LOKELMA) 5 GM PACKET PO SCH (10:28)
[2023-10-08] MEDS: IBUPROFEN 600 MG TABLET (FP) PO PRN (10:31)
[2023-10-08] MEDS: METHOCARBAMOL 500 MG TABLET PO PRN (10:32)
[2023-10-08] MEDS ORDERED: INSULIN SLIDING SCALE (NOVOLOG) 1 VIAL SQ SCH (11:00)
== END 2023-10-08 11:15 | disposition home or self-care (01) | DRG 773 ==
LOC: YASAS 12:06 → Y6N 13:36
PROVIDERS: ADMIT Allergy & Immunology; ATTEND Surgery
PROC: HZ2ZZZZ Detoxification Services for Substance Abuse Treatment (ICD-10-PCS; principal; 2023-10-04)
DX: F11.23 Opioid dependence with withdrawal (principal); F14.20 Cocaine dependence, uncomplicated; F17.210 Nicotine dependence, cigarettes, uncomplicated; F19.282 Other psychoactive substance dependence with psychoactive substance-induced sleep disorder; F31.9 Bipolar disorder, unspecified; F41.8 Other specified anxiety disorders; E87.5 Hyperkalemia; E11.9 Type 2 diabetes mellitus without complications; Z56.0 Unemployment, unspecified; Z59.00 Homelessness unspecified
CPT/HCPCS: 36415; 80053; 82962; 83036; 84132; 85027; 86780; 87389; 87635; 87811

== ENCOUNTER 2023-12-07 14:42 | Inpatient (IN) | payer OTHER ==
[2023-12-07 15:35] VITALS: BMI 33.2
[2023-12-07] MEDS ORDERED: ACETAMINOPHEN 325 MG TABLET (FP) PO PRN (20:56)
[2023-12-07] MEDS ORDERED: guaiFENesin 600 MG TABLET.ER (FP) PO PRN (20:56)
[2023-12-07] MEDS ORDERED: DOCUSATE SODIUM 100 MG CAPSULE (FP) PO PRN (20:56)
[2023-12-07] MEDS ORDERED: POLYETHYLENE GLYCOL (HEALTHYLAX) 3350 17 GM PACKET PO PRN (20:56)
[2023-12-07] MEDS ORDERED: BENZOCAINE/MENTHOL (CHLORASEPTIC ) LOZENGE MM PRN (20:56)
[2023-12-07] MEDS ORDERED: LOPERAMIDE HCL 2 MG CAPSULE PO PRN (20:56)
[2023-12-07] MEDS ORDERED: IBUPROFEN 400 MG TABLET (FP) PO PRN (20:56)
[2023-12-07] MEDS ORDERED: MAG HYDROX/AL HYDROX/SIMETH 30 ML UNIT-DOSE CUP PO PRN (20:56)
[2023-12-07] MEDS ORDERED: NALOXONE HCL 0.4 MG/ML VIAL IM PRN (20:56)
[2023-12-07] MEDS ORDERED: NICOTINE POLACRILEX 2 MG GUM BUC PRN (20:56)
[2023-12-07] MEDS ORDERED: P-EPHED 60MG/TRIPROLIDI 2.5MG TABLET PO PRN (20:56)
[2023-12-07] MEDS ORDERED: BENZONATATE 200 MG CAPSULE PO PRN (20:56)
[2023-12-07] MEDS ORDERED: MAGNESIUM HYDROX 2400MG/30ML ORAL SUSPENSION 30 ML CUP PO PRN (20:56)
[2023-12-07] MEDS ORDERED: NALOXONE HCL (KLOXXADO) 8 MG SPRAY NS PRN (20:56)
[2023-12-07] MEDS: INSULIN ASPART SLIDING SCALE (NOVOLOG) 1 VIAL SQ SCH ×2 (21:29→21:44)
[2023-12-07] MEDS ORDERED: INSULIN (NOVOLOG) ASPART 100 UNITS/ML 10ML VIAL ONE (21:30)
[2023-12-07] MEDS: THIAMINE HCL 100 MG TABLET (FP) PO SCH (21:55)
[2023-12-07] MEDS: MELATONIN 5 MG TABLETS PO SCH (21:55)
[2023-12-07] MEDS: levETIRAcetam 500 MG TABLET (FP) PO SCH (21:57)
[2023-12-08] MEDS: INSULIN ASPART SLIDING SCALE (NOVOLOG) 1 VIAL SQ SCH ×4 (06:56→21:11)
[2023-12-08] MEDS: levETIRAcetam 500 MG TABLET (FP) PO SCH ×2 (09:53→21:11)
[2023-12-08] MEDS: PRENATAL VITAMINS W/ FOLIC ACID TABLET (FP) PO SCH (09:54)
[2023-12-08] MEDS: NICOTINE 7 MG/24 HOURS TOPICAL PATCH TD SCH (09:54)
[2023-12-08] MEDS: IBUPROFEN 600 MG TABLET (FP) PO PRN ×2 (09:55→17:29)
[2023-12-08 11:23] LABS: POTASSIUM 5.3 mmol/L (3.5-5.1)
[2023-12-08 11:26] LABS: HEMATOCRIT 41.3 % (35.4-49); HEMOGLOBIN 13.2 GM/dL (11.7-16.9); MCH 26.5 pg (25.7-33.7); MCHC 31.9 g/dl (32.0-35.9); MEAN CELL VOLUME 82.9 fl (80-96); MEAN PLT VOLUME 9.4 fl (7.5-11.1); PLATELET COUNT 363 10^3/uL (134-434); RBC 4.99 M/mm3 (4.00-5.60); RDW 14.6 % (11.9-15.9); WHITE BLOOD COUNT 5.2 K/mm3 (4.0-10.0)
[2023-12-08 11:37] LABS: BLOOD UREA NITROGEN 23.5 mg/dL (7-18); CALCIUM 9.1 mg/dL (8.5-10.1)
[2023-12-08 11:42] LABS: BILIRUBIN,TOTAL 0.3 mg/dL (0.2-1); TOT PROT 6.5 g/dl (6.4-8.2)
[2023-12-08 17:58] LABS: EPI CELLS 16 /uL (0-25.1); HYALINE CASTS 1 /uL (0-3.1); PH,URINE 5.5 (5.0-8.0); URINE APPEARANCE CLEAR; URINE BACTERIA 23 /uL (0-1359); URINE BILIRUBIN NEGATIVE (NEGATIVE); URINE COLOR YELLOW; URINE GLUCOSE (UA) 3+ (NEGATIVE); URINE KETONE NEGATIVE (NEGATIVE); URINE LEUK ESTERASE NEGATIVE (NEGATIVE); URINE NITRITE NEGATIVE (NEGATIVE); URINE PROTEIN 1+ (NEGATIVE); URINE RBC 15 /uL (0-23.9); URINE UROBILINOGEN 0.2 mg/dL (0.2-1.0); URINE WBC 16 /uL (0-25.8)
[2023-12-08] MEDS: MELATONIN 5 MG TABLETS PO SCH (21:11)
[2023-12-08] MEDS: THIAMINE HCL 100 MG TABLET (FP) PO SCH (21:13)
[2023-12-09] MEDS: INSULIN ASPART SLIDING SCALE (NOVOLOG) 1 VIAL SQ SCH ×5 (08:09→22:02)
[2023-12-09] MEDS: levETIRAcetam 500 MG TABLET (FP) PO SCH ×2 (09:42→22:00)
[2023-12-09] MEDS: PRENATAL VITAMINS W/ FOLIC ACID TABLET (FP) PO SCH (09:42)
[2023-12-09] MEDS: NICOTINE 7 MG/24 HOURS TOPICAL PATCH TD SCH (09:42)
[2023-12-09] MEDS ORDERED: INSULIN (NOVOLOG) ASPART 100 UNITS/ML 10ML VIAL ONE ×2 (12:02→23:16)
[2023-12-09] MEDS ORDERED: METHOCARBAMOL 500 MG TABLET PO PRN (13:34)
[2023-12-09] MEDS: cloNIDine HCL 0.1 MG TABLET PO PRN ×2 (14:54→22:00)
[2023-12-09] MEDS: MELATONIN 5 MG TABLETS PO SCH (22:00)
[2023-12-09] MEDS: THIAMINE HCL 100 MG TABLET (FP) PO SCH (22:00)
[2023-12-10 06:56] VITALS: BP 121/72; PULSE 68; RESP 17; TEMP 97.6
[2023-12-10] MEDS ORDERED: INSULIN (NOVOLOG) ASPART 100 UNITS/ML 10ML VIAL ONE (07:15)
[2023-12-10] MEDS: INSULIN ASPART SLIDING SCALE (NOVOLOG) 1 VIAL SQ SCH (07:15)
[2023-12-10] MEDS: IBUPROFEN 600 MG TABLET (FP) PO PRN (09:40)
[2023-12-10] MEDS: levETIRAcetam 500 MG TABLET (FP) PO SCH (09:42)
[2023-12-10] MEDS: NICOTINE 7 MG/24 HOURS TOPICAL PATCH TD SCH (09:43)
[2023-12-10] MEDS: PRENATAL VITAMINS W/ FOLIC ACID TABLET (FP) PO SCH (09:43)
== END 2023-12-10 10:00 | disposition left against medical advice (07) | DRG 770 ==
LOC: YASAS 14:42 → Y3E 21:12
PROVIDERS: ADMIT Allergy & Immunology; ATTEND Psychiatry & Neurology Pain Medicine
PROC: HZ42ZZZ Group Counseling for Substance Abuse Treatment, Cognitive-Behavioral (ICD-10-PCS; principal; 2023-12-07)
DX: F11.20 Opioid dependence, uncomplicated (principal); F17.210 Nicotine dependence, cigarettes, uncomplicated; F41.9 Anxiety disorder, unspecified; F32.A Depression, unspecified; R73.9 Hyperglycemia, unspecified; Z99.89 Dependence on other enabling machines and devices
CPT/HCPCS: 36415; 80053; 81003; 82962; 85027; 86780; 87635; 87811

== ENCOUNTER 2024-01-16 13:14 | Inpatient (IN) | payer OTHER ==
[2024-01-16 14:12] VITALS: BMI 38.5
[2024-01-16] MEDS ORDERED: guaiFENesin 600 MG TABLET.ER (FP) PO PRN (15:56)
[2024-01-16] MEDS ORDERED: ONDANSETRON *ODT* 4 MG TABLET SL PRN (15:56)
[2024-01-16] MEDS ORDERED: DICYCLOMINE HCL 10 MG CAPSULE PO PRN (15:56)
[2024-01-16] MEDS ORDERED: MAG HYDROX/AL HYDROX/SIMETH 30 ML UNIT-DOSE CUP PO PRN (15:56)
[2024-01-16] MEDS ORDERED: LOPERAMIDE HCL 2 MG CAPSULE PO PRN (15:56)
[2024-01-16] MEDS ORDERED: NICOTINE POLACRILEX 4 MG GUM BUC PRN (15:56)
[2024-01-16] MEDS ORDERED: POLYETHYLENE GLYCOL (HEALTHYLAX) 3350 17 GM PACKET PO PRN (15:56)
[2024-01-16] MEDS ORDERED: BISMUTH SUBSALICYLATE 524 MG/30 ML PO PRN (15:56)
[2024-01-16] MEDS ORDERED: NALOXONE HCL (KLOXXADO) 8 MG SPRAY NS PRN (15:56)
[2024-01-16] MEDS ORDERED: MAGNESIUM HYDROX 2400MG/30ML ORAL SUSPENSION 30 ML CUP PO PRN (15:56)
[2024-01-16] MEDS ORDERED: IBUPROFEN 400 MG TABLET (FP) PO PRN (15:56)
[2024-01-16] MEDS ORDERED: NALOXONE HCL 0.4 MG/ML VIAL IM PRN (15:56)
[2024-01-16] MEDS ORDERED: BENZONATATE 200 MG CAPSULE PO PRN (15:56)
[2024-01-16] MEDS ORDERED: BENZOCAINE/MENTHOL (CHLORASEPTIC ) LOZENGE MM PRN (15:56)
[2024-01-16] MEDS: methaDONE HCL 10 MG TABLET (FOR DETOX USE ONLY) PO ONE (20:25)
[2024-01-16] MEDS: metFORMIN HCL 500 MG TABLET (FP) PO SCH (20:59)
[2024-01-16] MEDS: PRENATAL VITAMINS W/ FOLIC ACID TABLET (FP) PO SCH (21:00)
[2024-01-16] MEDS: INSULIN ASPART SLIDING SCALE (NOVOLOG) 1 VIAL SQ SCH ×2 (21:00→21:27)
[2024-01-16] MEDS: MELATONIN 5 MG TABLETS PO SCH (21:26)
[2024-01-16] MEDS: cloNIDine HCL 0.1 MG TABLET PO PRN (21:26)
[2024-01-16] MEDS: IBUPROFEN 600 MG TABLET (FP) PO PRN (21:26)
[2024-01-16] MEDS: THIAMINE HCL 100 MG TABLET (FP) PO SCH (21:26)
[2024-01-16] MEDS ORDERED: INSULIN (NOVOLOG) ASPART 100 UNITS/ML 10ML VIAL ONE (21:31)
[2024-01-17] MEDS: levETIRAcetam 500 MG TABLET (FP) PO SCH (05:45)
[2024-01-17] MEDS: METHOCARBAMOL 500 MG TABLET PO PRN (08:09)
[2024-01-17] MEDS: ACETAMINOPHEN 325 MG TABLET (FP) PO PRN (10:36)
[2024-01-17] MEDS: hydrOXYzine PAMOATE 25 MG CAPSULE (FP) PO PRN (17:32)
[2024-01-17] MEDS ORDERED: INSULIN (NOVOLOG) ASPART 100 UNITS/ML 10ML VIAL ONE (17:36)
[2024-01-18] MEDS: methaDONE HCL 10 MG TABLET (FOR DETOX USE ONLY) PO ONE (09:25)
[2024-01-18 15:15] VITALS: BP 103/52; PULSE 73; RESP 16; TEMP 98.2
[2024-01-20] MEDS ORDERED: methaDONE HCL 10 MG TABLET (FOR DETOX USE ONLY) PO ONE (10:00)
== END 2024-01-18 16:30 | disposition left against medical advice (07) | DRG 770 ==
LOC: YASAS 13:14 → Y6N 16:12
PROVIDERS: ADMIT Allergy & Immunology; ATTEND Allergy & Immunology
PROC: HZ2ZZZZ Detoxification Services for Substance Abuse Treatment (ICD-10-PCS; principal; 2024-01-16)
DX: F11.23 Opioid dependence with withdrawal (principal); F12.20 Cannabis dependence, uncomplicated; F17.210 Nicotine dependence, cigarettes, uncomplicated; E11.9 Type 2 diabetes mellitus without complications; Z79.84 Long term (current) use of oral hypoglycemic drugs; R56.9 Unspecified convulsions
CPT/HCPCS: 82962; 87635; 93005; 93010

== ENCOUNTER 2025-05-26 17:55 | Inpatient (IN) | payer OTHER ==
[2025-05-26 18:32] VITALS: BMI 31.6
[2025-05-26] MEDS ORDERED: LOPERAMIDE HCL 2 MG CAPSULE PO PRN (19:12)
[2025-05-26] MEDS ORDERED: POLYETHYLENE GLYCOL (HEALTHYLAX) 3350 17 GM PACKET PO PRN (19:12)
[2025-05-26] MEDS ORDERED: BISMUTH SUBSALICYLATE 524 MG/30 ML PO PRN (19:12)
[2025-05-26] MEDS ORDERED: DICYCLOMINE HCL 10 MG CAPSULE PO PRN (19:12)
[2025-05-26] MEDS ORDERED: MAG HYDROX/AL HYDROX/SIMETH 30 ML UNIT-DOSE CUP PO PRN (19:12)
[2025-05-26] MEDS ORDERED: BENZOCAINE/MENTHOL (CHLORASEPTIC ) LOZENGE MM PRN (19:12)
[2025-05-26] MEDS ORDERED: NALOXONE (NARCAN) HCL 4 MG/0.1 ML SPRAY NS PRN (19:12)
[2025-05-26] MEDS ORDERED: IBUPROFEN 400 MG TABLET (FP) PO PRN (19:12)
[2025-05-26] MEDS ORDERED: MAGNESIUM HYDROX 2400MG/30ML ORAL SUSPENSION 30 ML CUP PO PRN (19:12)
[2025-05-26] MEDS ORDERED: guaiFENesin 600 MG TABLET.ER (FP) PO PRN (19:12)
[2025-05-26] MEDS ORDERED: ONDANSETRON *ODT* 4 MG TABLET SL PRN (19:12)
[2025-05-26] MEDS ORDERED: BENZONATATE 200 MG CAPSULE PO PRN (19:12)
[2025-05-26] MEDS: IBUPROFEN 600 MG TABLET (FP) PO PRN (19:42)
[2025-05-26] MEDS: METHOCARBAMOL 500 MG TABLET PO PRN (22:11)
[2025-05-26] MEDS: MELATONIN 5 MG TABLETS PO SCH (22:11)
[2025-05-26] MEDS: THIAMINE 100 MG TABLET PO SCH (22:12)
[2025-05-27] MEDS: INSULIN ASPART SLIDING SCALE (NOVOLOG) 1 VIAL SQ SCH (06:33)
[2025-05-27] MEDS: NICOTINE 21 MG/24 HOURS TOPICAL PATCH TD SCH (09:27)
[2025-05-27] MEDS: PRENATAL VITAMINS W/ FOLIC ACID TABLET (FP) PO SCH (09:27)
[2025-05-27 11:40] LABS: MCHC 31.2 g/dl (32.3-36.5); MEAN CELL VOLUME 84.2 fl (79.0-92.2); MEAN PLT VOLUME 11.3 fl (9.4-12.4); RDW 13.3 % (12.0-15.6)
[2025-05-27 12:06] LABS: CO2 28.0 mmol/L (21-32)
[2025-05-27 12:07] LABS: GLUCOSE,RANDOM 261.0 mg/dL (74-106)
[2025-05-27 12:09] LABS: SGPT/ALT 18.0 U/L (13-61)
[2025-05-27 12:10] LABS: CREATININE 0.8 mg/dL (0.55-1.3); SGOT/AST 11.0 U/L (15-37)
[2025-05-27 12:11] LABS: TOT PROT 5.5 g/dl (6.4-8.2)
[2025-05-27 12:12] LABS: ALK PHOS 110.0 U/L (45-117)
[2025-05-28] MEDS: hydrOXYzine PAMOATE 25 MG CAPSULE (FP) PO PRN (09:02)
[2025-05-28] MEDS: ACETAMINOPHEN 325 MG TABLET (FP) PO PRN (17:46)
[2025-05-29] MEDS: NICOTINE POLACRILEX 4 MG GUM BUC PRN (20:23)
[2025-05-31 05:59] VITALS: RESP 16
[2025-05-31 08:47] VITALS: BP 122/86; PULSE 68; TEMP 97.6
== END 2025-05-31 08:47 | disposition home or self-care (01) | DRG 773 ==
LOC: EDBD 17:55 → YASAS 17:55 → Y6N 19:18
PROVIDERS: ADMIT Neuromusculoskeletal Medicine & OMM; ATTEND Family Medicine Addiction Medicine
PROC: HZ2ZZZZ Detoxification Services for Substance Abuse Treatment (ICD-10-PCS; principal; 2025-05-26)
DX: F11.23 Opioid dependence with withdrawal (principal); F17.210 Nicotine dependence, cigarettes, uncomplicated; E11.9 Type 2 diabetes mellitus without complications; F14.20 Cocaine dependence, uncomplicated; F32.A Depression, unspecified; F10.20 Alcohol dependence, uncomplicated
CPT/HCPCS: 36415; 80053; 80305; 80307; 85027; 86780; 93005; 93010